=== PATIENT | male | born 1960 | race Caucasian/White ===

== ENCOUNTER 2019-09-28 15:16 | Emergency (ER) | payer OTHER, SELFPAY ==
--- NOTE | ~2019-09-28 | CT_ITS ---
EXAMINATION: CTA chest PE protocol DATE: 09/28/2019 17:19 INDICATION: Shortness of breath and having recently stopped anticoagulation for prior pulmonary embol ism. TECHNIQUE: Computed tomography (CT) pulmonary angiogram of the chest was performed with 100 mL Omnipa que-350 intravenous contrast. Additional 3D reconstructions utilizing coronal maximum intensity proje ction (MIP) were performed. Automated exposure control and iterative reconstruction technique were em ployed. The dose-length product was 1192.30 mGy-cm. COMPARISON: 08/02/2018 FINDINGS: Good contrast opacification of the pulmonary arteries. There is mild to moderate streak artifact from dense contrast in the in the veins between the right upper extremity and the right atrium including some reflux contrast in the azygos vein. There is also mild to moderate scattered respiratory motion artifact most prominent at the left lung base. Together this decreases sensitivity in many of the sma ller segmental and subsegmental pulmonary arteries. There is a new pulmonary arterial filling defect in the right upper lobar posterior segmental and subsegmental pulmonary arteries consistent with recu rrent pulmonary embolism. The prior pulmonary emboli appear to have resolved. Persistent volume loss the right hemithorax with elevation of right hemidiaphragm and compressive right basilar atelectasis. No pneumonia, pulmonary edema or pleural effusion. Heart size is normal. No leftward deviation of th e ventricular septum to suggest right heart strain. Thoracic aorta is normal in caliber with no disse ction. No pathologically enlarged thoracic lymphadenopathy. Liver, gallbladder, spleen, pancreas, olivia ateral adrenal glands and visualized portions of the kidneys and bowels are normal. Anterior fusion w ith interbody fusion device at C6-C7. Mild thoracic spondylosis with bridging osteophytes at multiple levels consistent with diffuse idiopathic skeletal hyperostosis (DISH). IMPRESSION: 1. New pulmonary embolism in the right upper lobe posterior segmental and subsegmental pulmonary myriam bertha. Dr. Martínez discussed these findings with Dr. Mcelroy at 5:50 PM. Reviewed, dictated and finalized at location A. ESSING TECHNICIAN IMPRESSION: 1. New pulmonary embolism in the right upper lobe posterior segmental and subse gmental pulmonary arteries. Dr. Martínez discussed these findings with Ulises is at 5:50 PM.
[2019-09-28 15:30] VITALS: BP 119/71; PULSE 68; RESP 18; TEMP 36.6; O2SAT 92
--- NOTE | 2019-09-28 16:03 | ECG_ITS ---
Measurements Intervals [place] Rate: 64 P: 30 ND: 169 QRS: 41 QRSD: 96 T: 16 QT: 409 QTc: 423 Interpretive Statements SINUS RHYTHM VOLTAGE CRITERIA FOR LVH BORDERLINE ECG Electronically Signed On 09-28-2019 16:20:25 SEISMOLOGY TECHNICAL OFFICER by Kyle Wilks D.O.
[2019-09-28 16:40] LABS: Hematocrit 46.2 % (40.0-54.0); Hemoglobin 15.4 g/dL (14.0-18.0); Mean Corpuscular HGB Conc 33.3 g/dL (32.0-36.0); Mean Corpuscular Hemoglobin 29.1 pg (27.0-31.0); Mean Corpuscular Volume 87.2 fL (78.0-102.0); Mean Platelet Volume 11.2 fl (8.7-11.0); Platelet Count Result 186 K/mm3 (150-420); Red Cell Distribution Width 13.4 % (11.6-14.4); White Blood Count 6.8 K/mm3 (4.8-10.8)
[2019-09-28 17:00] LABS: Alanine Aminotransferase 40 U/L (16-63); Albumin Level 3.8 g/dL (3.4-5.0); Alkaline Phosphatase 65 U/L (46-116); Anion Gap 10.1 mmol/L (7-16); Aspartate Amino Transferase 39 U/L (15-37); Bilirubin,Total 0.4 mg/dL (0.00-1.00); Blood Urea Nitrogen 19 mg/dL (7-18); Calcium 8.5 mg/dL (8.5-10.1); Carbon Dioxide 31 mmol/L (21-32); Chloride 102 mmol/L (98-108); Estimated CRCL calculation 69 ml/min; Estimated Glomerular Filt Rate 52; Glucose 109 mg/dL (70-99); Osmolality Calculated 293 mOsm/kg (285-295); Potassium 3.1 mmol/L (3.5-5.1); Sodium 140 mmol/L (136-145); Total Protein 7.1 g/dL (6.4-8.2); Troponin I < 0.02 ng/mL (0.00-0.056)
[2019-09-28 18:02] VITALS: BP 116/78; PULSE 65; RESP 18; O2SAT 92
--- NOTE | 2019-09-28 18:03 | ED.GENADULT ---
HPI - General Adult General Chief complaint: Dizziness Stated complaint: sweating,head pain,dizzy Source: patient Mode of arrival: ambulatory Limitations: no limitations History of Present Illness HPI narrative: This is a 58-year-old gentleman that presents to the emergency department with some some increased shortness of breath with an episode of diophoresis Started on Wednesday, and while he was sleeping at night that woke him up with a mild cough that is nonproductive with no chest pain, has a history of a pulmonary embolus occurred after he had neck surgery. Patient recently had his Eliquis stopped by his primary care physician. Currently no fever or chills, no nausea vomiting no chest pain no abdominal pain currently no diaphoresis and the patient is not complaining of shortness of breath currently Onset (ago): day(s) Location: chest Radiation: non-radiation Severity: mild Severity scale (1-10): 4 Pain Consistency: intermittent Relieving factors: none Exacerbating factors: none Associated symptoms: cough and diaphoresis Related Data Home Medications Medication Instructions Recorded Confirmed carvedilol 25 mg tablet 25 mg PO Q12H 07/27/19 09/28/19 hydrochlorothiazide 50 mg tablet 50 mg PO DAILY 07/27/19 09/28/19 hijltfax-ktazriio-rblnh acid 400 1 tablet PO DAILY 07/27/19 09/28/19 mcg-vit K 20 mcg-lycop 300 mcg tablet omeprazole magnesium 20 mg 20 mg PO DAILY 07/27/19 09/28/19 tablet,delayed release Allergies Allergy/AdvReac Type Severity Reaction Status Date / Time rabeprazole Allergy Mild rash Verified 07/31/19 09:05 Review of Systems Review of Systems: All systems reviewed & are unremarkable except as noted in HPI and below PMFSH Past Medical History Medical History Pulmonary embolism Family History Family History Father Asthma Family history of malignant neoplasm Patient's father is Mother Family history of malignant neoplasm Patient's mother is Social History Social History Smoking status: Never smoker Second hand tobacco smoke exposure: No Alcohol intake: never Exam Const: General: no acute distress and alert Orientation/consciousness: patient oriented x3 HENMT: Head: normal to inspection Eyes: Conjunctivae: conjunctivae normal Pupils: Equal, round and reactive pupils present Neck: Neck: normal visual inspection Chest: Chest palpation & inspection: normal inspection of the chest and abnormal inspection of the chest Resp: Effort & Inspection: normal respiratory effort Auscultation: clear to auscultation bilaterally Cardio: Rate: regular rate Rhythm: regular rhythm GI: GI Palp: Yes Soft to palpation : Testes: Testes normal Skin: General skin exam: normal color Rashes: no rashes Neuro: General: patient oriented x3, moves all extremities, no meningeal signs and no focal motor deficits Psych: Mental Status: mental status grossly normal Course Vital Signs Vital signs: Vital Signs Temperature 36.6 C 09/28/19 15:30 Pulse Rate 68 09/28/19 15:30 Respiratory Rate 18 09/28/19 15:30 Blood Pressure 119/71 09/28/19 15:30 Pulse Oximetry 92 09/28/19 15:30 Temperature 36.6 C 09/28/19 15:30 Pulse Rate 68 09/28/19 15:30 Respiratory Rate 18 09/28/19 15:30 Blood Pressure 119/71 09/28/19 15:30 Pulse Oximetry 92 09/28/19 15:30 Medical Decision Making Vital Signs Vital Signs: Vital Signs Temperature 36.6 C 09/28/19 15:30 Pulse Rate 68 09/28/19 15:30 Respiratory Rate 18 09/28/19 15:30 Blood Pressure 119/71 09/28/19 15:30 Pulse Oximetry 92 09/28/19 15:30 Temperature 36.6 C 09/28/19 15:30 Pulse Rate 68 09/28/19 15:30 Respiratory Rate 18 09/28/19 15:30 Blood Pressure 119/71 09/28/19 15:
[2019-09-28 18:13] LABS: Influenza Control Valid (Valid)
[2019-09-28] MEDS: OSELTAMIVIR PHOSPHATE 75 MG CAP PO (18:50)
[2019-09-28 18:52] VITALS: BP 107/64; PULSE 69; RESP 18; O2SAT 93
[2019-09-28] MEDS: APIXABAN 2.5 MG TABLET 10 MG PO (18:55)
== END 2019-09-28 19:05 | disposition home or self-care (01) ==
PROVIDERS: Emergency Provider Emergency Medicine; PCP Internal Medicine
DX: J11.1 Influenza due to unidentified influenza virus with other respiratory manifestations (principal); I26.93 Single subsegmental thrombotic pulmonary embolism without acute cor pulmonale
CPT/HCPCS: 36415; 71275; 80053; 84484; 85027; 87804; 93005; 99283; 99284; A9270; Q9965

== ENCOUNTER 2020-07-22 07:03 | Outpatient (CLI) | payer OTHER, SELFPAY ==
[2020-07-22 07:35] LABS: Alanine Aminotransferase 37 U/L (4-50); Alkaline Phosphatase 67 U/L (38-126); Anion Gap 5 mmol/L (8-16); Aspartate Amino Transferase 41 U/L (17-59); Bilirubin,Total 0.7 mg/dL (0.2-1.3); Blood Urea Nitrogen 14 mg/dL (9-20); Calcium 9.1 mg/dL (8.4-10.2); Carbon Dioxide 36 mmol/L (22-30); Chloride 100 mmol/L (98-107); Cholesterol 169 mg/dL (0-200); Estimated Glomerular Filt Rate > 60; Glucose 106 mg/dL (75-110); HDL Direct 46 mg/dL; Potassium 3.6 mmol/L (3.4-5.0); Sodium 141 mmol/L (137-145); Triglycerides 111 mg/dL (<150)
[2020-07-22 07:45] LABS: LDL Cholesterol Direct 96 mg/dL
[2020-07-22 08:31] LABS: Prostate Specific Antigen 2.5 ng/mL (< OR = 4.0)
[2020-07-22 08:36] LABS: Hematocrit 50.2 % (42.0-52.0); Mean Corpuscular HGB Conc 33.9 g/dl (32-36); Mean Corpuscular Hemoglobin 29.9 pg (26-34); Mean Corpuscular Volume 88.4 fl (80-100); Mean Platelet Volume 11.1 fl (7.4-10.4); Platelet Count Result 260 k/mm3 (150-375); Red Blood Count 5.68 M/mm3 (4.6-6.20); Red Cell Distribution Width 12.8 % (11.5-14.5); White Blood Count 7.7 K/mm3 (4.5-10.0)
[2020-07-22 09:04] LABS: Folic Acid 11.3 ng/mL (2.76->20)
== END 2020-07-22 07:04 | disposition home or self-care (01) ==
PROVIDERS: PCP Internal Medicine; Visit Provider Physician Assistant
DX: Z00.00 Encounter for general adult medical examination without abnormal findings (principal); Z12.5 Encounter for screening for malignant neoplasm of prostate
CPT/HCPCS: 36415; 80053; 80061; 82607; 82746; 84153; 84443; 85027

== ENCOUNTER 2020-07-31 09:46 | Outpatient (NON) | payer OTHER, SELFPAY ==
[2020-08-01 20:04] LABS: SARS-CoV-2 RNA PCR Negative
== END 2020-07-31 09:47 ==
LOC: ANHCOVIDDT 09:48
PROVIDERS: Visit Provider Internal Medicine
DX: Z20.828 Contact with and (suspected) exposure to other viral communicable diseases (principal); R43.2 Parageusia
CPT/HCPCS: 87635; C9803; U0003

== ENCOUNTER 2020-08-21 13:05 | Outpatient (CLI) | payer OTHER, SELFPAY ==
--- NOTE | ~2020-08-21 | XR_ITS ---
XR chest 2V DATE: 08/21/2020 13:51 INDICATION: Cough and shortness of breath for 7 days. TECHNIQUE: PA and lateral views COMPARISON: Numerous CT pulmonary scan 11/07/2018 2 view chest FINDINGS: Normal heart size. No hilar or mediastinal enlargement. There is discoid atelectasis or more likely scarring in the right mid and lower lung zones and chroni c mild elevation of the right leaf of the diaphragm. No pulmonary consolidation is noted. No pleural effusion. Diffuse idiopathic skeletal hyperostosis and scoliosis of the thoracic spine. IMPRESSION: Discoid atelectasis or more likely scarring in the right mid and lower lung zones and chr onic elevation of right leaf of diaphragm Reviewed, dictated and finalized at location A. E OPERATOR IMPRESSION: Discoid atelectasis or more likely scarring in the right mid and lo wer lung zones and chronic elevation of right leaf of diaphragm
[2020-08-22 17:56] LABS: SARS-CoV-2 RNA PCR Positive
== END 2020-08-21 13:06 | disposition home or self-care (01) ==
LOC: CHSLAB 13:12
PROVIDERS: PCP Internal Medicine; Visit Provider Physician Assistant
DX: U07.1 COVID-19 (principal)
CPT/HCPCS: 71046; 87635; C9803; U0003

== ENCOUNTER 2020-08-23 08:51 | Inpatient (IN) | payer OTHER, SELFPAY ==
[2020-08-23] VITALS (10 sets, daily range): BP systolic 111–135; BP diastolic 80–91; PULSE 60–78; RESP 18–23; TEMP 36.3–36.8; O2SAT 90–97
--- NOTE | ~2020-08-23 | XR_ITS ---
EXAMINATION: XR chest 1V portable DATE: 08/23/2020 09:49 INDICATION: Shortness of breath and weakness TECHNIQUE: frontal view of the chest was obtained. COMPARISON: Chest radiograph dated 08/21/[address] dated 09/28/2019 FINDINGS: Chronic elevation of the right hemidiaphragm with no significant interval change in oblique linear op acities consistent with discoid atelectasis in the right mid and lower lung zones. Additional mild di scoid atelectasis at the left lung base extending to the costophrenic angle. No new airspace opacitie s, pulmonary edema, pleural effusion or pneumothorax. The cardiomediastinal silhouette is normal. The re are bridging osteophytes at multiple levels in the spine, consistent with diffuse idiopathic skele elmo hyperostosis (DISH). IMPRESSION: 1. No significant interval change in linear opacities consistent with discoid atelectasis/scarring at the left lung base and in the right mid and lower lung zone, the latter with associated elevation of right hemidiaphragm. Reviewed, dictated and finalized at location A. SWARE DEFECT REPAIRER IMPRESSION: 1. No significant interval change in linear opacities consistent with discoid a telectasis/scarring at the left lung base and in the right mid and lower lung z one, the latter with associated elevation of right hemidiaphragm.
--- NOTE | 2020-08-23 09:00 | ED.SOB ---
HPI - SOB/Dyspnea General Chief Complaint: Shortness of Breath/Dyspnea Stated Complaint: ?covid, SOB Time Seen by Provider: 08/23/20 09:13 Source: patient Mode of arrival: wheelchair Limitations: no limitations History of Present Illness HPI Narrative: Patient is a 59-year-old male with a history of hypertension, PE who presents for evaluation of shortness of breath. Patient was seen at outside facility for similar symptoms, swabbed for Covid but does not know the results of this. He has had positive Covid contacts. He reports dyspnea with exertion and at rest. He stated he became symptomatic the after his son tested positive. Patient reports he can still smell and taste but has no appetite and has been nauseated, thus has had decreased oral intake. He denies any current chest pain. He reports myalgias. No significant abdominal pain or flank pain. No rashes. Related Data Home Medications Medication Instructions Recorded Confirmed omeprazole magnesium 20 mg 20 mg PO DAILY 07/27/19 08/17/20 tablet,delayed release Allergies Allergy/AdvReac Type Severity Reaction Status Date / Time rabeprazole Allergy Mild rash Verified 08/23/20 09:08 Review of Systems Review of Systems: Narrative: CONSTITUTIONAL: Reports intermittent fever EYES: Denies visual changes, redness, or discharge. ENT: Reports mild rhinorrhea CARDIOVASCULAR: Denies chest pain, palpitations, or edema. RESPIRATORY: Reports dry cough and shortness of breath GASTROINTESTINAL: Denies abdominal pain, reports nausea, intermittent vomiting GENITOURINARY: Denies dysuria or hematuria. SKIN: Denies rash or itching. MUSCULOSKELETAL: Denies back pain, joint pain, reports myalgias NEUROLOGIC: Denies headache, numbness,reports feeling diffusely weak. [facility] Past Medical History Medical History (Updated 08/23/20 @ 09:38 by Keila Beebe MD) Cough FERRER (dyspnea on exertion) History of deep venous thrombosis or pulmonary embolus Loss of taste Pulmonary embolism Family History Family History Father Asthma Family history of malignant neoplasm Patient's father is Mother Family history of malignant neoplasm Patient's mother is Social History Social History Smoking status: Never smoker Second hand tobacco smoke exposure: No Alcohol intake: never Gender identity (if verbalized by the patient): Male Exam Narrative: Exam Narrative: GENERAL: Awake, alert, conversant HEAD: Normocephalic, atraumatic. EYES: PERRLA and EOMI. ENT: Nares clear, no rhinorrhea or epistaxis. Mucous membranes moist. NECK: Supple. CHEST: No respiratory distress, breathing even and non labored, hypoxic on room air, desaturates to 88% with movement HEART: Regular rate, sinus rhythm ABDOMEN:Non distended, non tender EXTREMITIES: Normal range of motion. No edema. SKIN: Warm, dry, no rash. NEURO:No focal deficits. Alert and oriented x3 Course Vital Signs Vital signs: Vital Signs Pulse Rate 64 08/23/20 09:05 Temperature 36.3 C L 08/23/20 09:06 Pulse Rate 63 08/23/20 09:11 Respiratory Rate 18 08/23/20 09:11 Blood Pressure 129/83 08/23/20 09:06 Pulse Oximetry 95 08/23/20 09:11 MDM - SOB/Dyspnea MDM Narrative Medical decision making narrative: Patient presented for evaluation of cough, myalgias, decreased oral intake over the past 10 days. Patient first day of symptoms was August 13 after he saw his primary care physician. Patient with positive contacts in the house including son and . After chart review, swab at outside facility was positive although patient had not been communicated these results until today. Chest x-ray shows bilateral infiltrates. With movement, patient desaturates to 88%, thus does qualify for IV Decadron and was given that in the ER. Given component of dehydratio
--- NOTE | 2020-08-23 09:05 | ECG_ITS ---
Measurements Intervals [place] Rate: 64 P: 21 AR: 146 QRS: 52 QRSD: 93 T: 19 QT: 429 QTc: 443 Interpretive Statements SINUS RHYTHM BORDERLINE ST-T WAVE ABNORMALITY- ANT/INF LEADS BASELINE WANDER- I, II, AVR, AVL, AVF, V1-V6 BORDERLINE ECG Electronically Signed On 08-23-2020 15:14:14 FIRESTOPPER TECHNICIAN by Kyle Wilks D.O.
[2020-08-23 09:13] LABS: Basophils Percent Auto 0.2 % (0.2-1.2); Hematocrit 48.1 % (42.0-52.0); Hemoglobin 16.7 g/dL (14.0-18.0); Immature Granulocyte Absolute 0.02 K/mm3 (0.00-0.031); Immature Granulocyte Percent A 0.3 % (0-0.5); Lymphocytes Absolute Auto 3.27 K/mm3 (0.9-3.2); Lymphocytes Percent Auto 51.6 % (18.3-44.2); Mean Corpuscular HGB Conc 34.7 g/dl (32-36); Mean Corpuscular Volume 83.7 fl (80-100); Mean Platelet Volume 10.6 fl (7.4-10.4); Monocytes Absolute Auto 0.7 K/mm3 (0.1-0.6); Monocytes Percent Auto 10.9 % (2.6-8.5); Neutrophils Absolute Auto 2.4 K/mm3 (1.3-6.7); Platelet Count Result 191 k/mm3 (150-375); Red Blood Count 5.75 M/mm3 (4.6-6.20); Red Cell Distribution Width 12.7 % (11.5-14.5); White Blood Count 6.3 K/mm3 (4.5-10.0)
[2020-08-23 09:26] LABS: Anion Gap 5 mmol/L (8-16); Blood Urea Nitrogen 17 mg/dL (9-20); Calcium 8.9 mg/dL (8.4-10.2); Carbon Dioxide 38 mmol/L (22-30); Chloride 88 mmol/L (98-107); Estimated CRCL calculation 91 ml/min; Estimated Glomerular Filt Rate > 60; Glucose 112 mg/dL (75-110); Sodium 131 mmol/L (137-145)
[2020-08-23 09:35] LABS: Alanine Aminotransferase 40 U/L (4-50); Alkaline Phosphatase 49 U/L (38-126); Aspartate Amino Transferase 65 U/L (17-59); Bilirubin,Total 0.7 mg/dL (0.2-1.3)
[2020-08-23] MEDS: SODIUM CHLORIDE 0.9% IV 1,000 ML 999 ML IV CONT (09:51)
[2020-08-23] MEDS: ONDANSETRON INJ 4 MG/2 ML VIAL IV PUSH (09:51)
--- NOTE | 2020-08-23 12:37 | ADMGEN ---
This patient, Silviano Melendez, was admitted to [address] [facility] Surg Room 300-01. Patient/family oriented to hospital policies and general routines including ID bracelet, bed and alarms, visiting hours, pain management, procedures, bathroom and other care routines, personal items, smoking policy, room service/diet, and visiting hours. Information on how to activate the Rapid Response Team has been discussed. Patient/Family are encouraged to report perceived risks to care and to ask questions if they do not understand what they are told or what they should do.
--- NOTE | 2020-08-23 13:37 | PM.IMHP ---
H&P: HPI History of Present Illness Date/Time: 08/23/20 13:37 Chief Complaint: Dyspnea on exertion Narrative: Silviano Melendez is a 59 year old male of hypertension and pulmonary embolism. He has been on Eliquis. The patient takes his medication routinely. He is also on hydrochlorothiazide. The patient stated that he started to get COVID symptoms around the 13 of August when his tested positive on the 13 of August. The patient has had loss of his appetite has been nauseated. He said that he has not lost his sense of taste but nothing taste good to him. He has had no chest pain but has been short of breath. He has been progressively getting worse. This is his 10th day of symptoms. He does not typically wear oxygen at home. He is currently on 3 L per nasal cannula. The patient tested positive for COVID on 08/21/2020 he had a negative COVID on 07/31/2020. His and son also have tested positive for COVID an [employer] well. The patient had a pulse ox reading of 92 to 93-94% and it looks like in the past he has had readings that low as well. Patient was placed on oxygen at 2 L per nasal cannula. That is been loose and nonproductive. He was given a 1 time dose of Decadron and Zofran in the emergency room. He was given potassium IV piggyback for potassium 3.0. He is also given IV fluids. The patient stated he is feeling much better since he had received the IV fluids and the oxygen. Change in the linear opacities consistent with discoid atelectasis-scarring at the left lung bases and in the right mid lower lung zones the latter with associated elevation of right hemo diaphragm. Status on the date of service of 08/23/2020. Review of Systems Review of Systems: All systems reviewed & are unremarkable except as noted in HPI and below Constitutional: Constitutional: Reports as per HPI and Reports no additional constitutional complaints Eyes: Eyes: Reports as per HPI and Reports no additional eye complaints ENT: Reports system reviewed and no additional complaints, except as documented and Reports Normal hearing present Cardiovascular: Cardiovascular: Reports no additional cardiovascular complaints Respiratory: Respiratory: Reports no additional respiratory complaints and Reports no additional respiratory complaints Gastrointestinal: Gastrointestinal: Reports as per HPI and Reports no additional gastrointestinal complaints Musculoskeletal: Musculoskeletal: Reports no additional musculoskeletal complaints Integumentary/Breasts: Skin/Breast: Reports system reviewed and no additional complaints, except as docu and Reports as per HPI Neurologic: Reports system reviewed and no additional complaints, except as documented, Reports as per HPI and Reports Normal hearing present Psychiatric: Psychiatric: Reports no additional psychiatric complaints and Reports as per HPI Endocrine: Endocrine: Reports no additional endocrine complaints Hematologic/Lymphatic: Hematologic/Lymphatic: Reports no additional hematologic/lymphatic complaints Allergic/Immunologic: Allergic/Immunologic: Reports no additional allergic/immunologic complaints [facility] Past Medical History Medical History (Updated 08/23/20 @ 14:11 by Brenda Landis NP) Chronic GERD Cough FERRER (dyspnea on exertion) History of deep venous thrombosis or pulmonary embolus Hypertension Loss of taste Neuropathy Left foot Pulmonary embolism Surgical History Surgical History (Updated 08/23/20 @ 13:49 by Brenda Landis NP) History of carotid angioplasty Status post left foot surgery X2 Family History Family History (Updated 08/23/20 @ 13:51 by Brenda Landis NP) Father Asthma Patient's father is Emphysema lung Mother Patient's mother is Sepsis Social History Social History (Updated 08/23/20 @ 13:52 by Brenda Landis NP) Social History: Patient lives with his who works in the medical field. She is a dura
[2020-08-23 14:24] LABS: Alanine Aminotransferase 37 U/L (4-50); Estimated CRCL calculation 101 ml/min; Estimated Glomerular Filt Rate > 60
[2020-08-23] MEDS: SODIUM CHLORIDE 0.9% IV 1,000 ML 50 ML IV CONT (15:35)
[2020-08-23] MEDS: REMDESIVIR 200 MG/NS 250 ML 200 MG/250 ML BAG 250 MG IVPB (15:36)
[2020-08-23] MEDS: GABAPENTIN 300 MG CAPSULE 600 MG PO ×2 (15:36→17:50)
[2020-08-23] MEDS: APIXABAN 5 MG TABLET PO (17:25)
[2020-08-23] MEDS: carvediloL 25 MG TABLET PO (21:42)
[2020-08-23 22:30] LABS: Anion Gap 8 mmol/L (8-16); Blood Urea Nitrogen 14 mg/dL (9-20); Calcium 8.7 mg/dL (8.4-10.2); Carbon Dioxide 34 mmol/L (22-30); Chloride 90 mmol/L (98-107); Estimated CRCL calculation 112 ml/min; Estimated Glomerular Filt Rate > 60; Glucose 174 mg/dL (75-110); Potassium 3.1 mmol/L (3.4-5.0); Sodium 132 mmol/L (137-145)
[2020-08-23] MEDS: ALBUTEROL SULFATE (*SP) AEROSOL 1 PUFF 2 PUFF INHALATION (23:11)
[2020-08-24] VITALS (10 sets, daily range): BP systolic 109–146; BP diastolic 68–88; PULSE 49–73; RESP 16–18; TEMP 36.2–37; O2SAT 89–95
[2020-08-24] MEDS: SODIUM CHLORIDE 0.9% IV 1,000 ML 50 ML IV CONT (01:00)
[2020-08-24 06:33] LABS: Hematocrit 48.3 % (42.0-52.0); Hemoglobin 16.5 g/dL (14.0-18.0); Immature Granulocyte Absolute 0.01 K/mm3 (0.00-0.031); Immature Granulocyte Percent A 0.3 % (0-0.5); Lymphocytes Absolute Auto 1.86 K/mm3 (0.9-3.2); Mean Corpuscular HGB Conc 34.2 g/dl (32-36); Mean Corpuscular Hemoglobin 28.6 pg (26-34); Mean Corpuscular Volume 83.7 fl (80-100); Mean Platelet Volume 10.8 fl (7.4-10.4); Monocytes Absolute Auto 0.3 K/mm3 (0.1-0.6); Monocytes Percent Auto 9.1 % (2.6-8.5); Neutrophils Absolute Auto 1.3 K/mm3 (1.3-6.7); Neutrophils Percent Auto 37.6 % (45.5-73.1); Platelet Count Result 213 k/mm3 (150-375); Red Blood Count 5.77 M/mm3 (4.6-6.20); Red Cell Distribution Width 12.4 % (11.5-14.5); White Blood Count 3.5 K/mm3 (4.5-10.0)
[2020-08-24 06:50] LABS: Alanine Aminotransferase 37 U/L (4-50); Albumin Level 3.8 g/dL (3.5-5.1); Alkaline Phosphatase 50 U/L (38-126); Anion Gap 6 mmol/L (8-16); Aspartate Amino Transferase 59 U/L (17-59); Bilirubin,Total 0.7 mg/dL (0.2-1.3); Blood Urea Nitrogen 14 mg/dL (9-20); Calcium 8.6 mg/dL (8.4-10.2); Carbon Dioxide 36 mmol/L (22-30); Chloride 93 mmol/L (98-107); Estimated CRCL calculation 127 ml/min; Estimated Glomerular Filt Rate > 60; Glucose 132 mg/dL (75-110); Lactate Dehydrogenase 537 U/L (313-618); Potassium 2.9 mmol/L (3.4-5.0); Sodium 135 mmol/L (137-145)
[2020-08-24] MEDS: PANTOPRAZOLE 40 MG TABLET PO (08:25)
[2020-08-24] MEDS: DEXAMETHASONE SOD PHOS INJ 4 MG/ML VIAL 6 MG IV PUSH (08:25)
[2020-08-24] MEDS: carvediloL 25 MG TABLET PO ×2 (08:25→20:57)
[2020-08-24] MEDS: APIXABAN 5 MG TABLET PO ×2 (08:25→17:53)
[2020-08-24] MEDS: ALBUTEROL SULFATE (*SP) AEROSOL 1 PUFF 2 PUFF INHALATION ×2 (08:25→17:53)
[2020-08-24] MEDS: GABAPENTIN 300 MG CAPSULE 600 MG PO ×3 (08:25→17:53)
[2020-08-24] MEDS: POTASSIUM CHLORIDE 20 MEQ TABLET 40 MEQ PO (09:31)
[2020-08-24] MEDS: REMDESIVIR 100 MG/NS 250 ML 100 MG/250 ML BAG 250 MG IVPB (10:41)
[2020-08-24] MEDS: guaiFENesin/DEXTROMETHORPHAN 10 ML UDC PO ×2 (12:40→20:56)
--- NOTE | 2020-08-24 13:28 | PM.IMPN ---
Progress Note: A&P Assessment and Plan (1) COVID-19: Code(s): U07.1 - COVID-19 Status: Acute Assessment and Plan: Patient presents with worsening shortness of breath; CXR shows discoid atelectasis/scarring at the left lung base, and right mid and lower lung zones with right hemidiaphragm; COVID positive 08/21/20. Continue dexamethasone (day 2); remdesivir (day 2). Continue supplemental O2 and wean as tolerated to keep O2 saturations > 90%. Continue supportive care with Tylenol for fevers, albuterol MDI, Robitussin, incentive spirometer, supplementation of Zinc, vitamins C and D. DVT prophylaxis with his home Eliquis. (2) Acute respiratory failure with hypoxia: Code(s): J96.01 - Acute respiratory failure with hypoxia Status: Acute Assessment and Plan: Secondary to COVID-19. See above. On 2 L at time of my assessment, noted to have O2 saturations less than 90% on room air during my exam. Wean O2 as tolerated. (3) Hypokalemia: Code(s): E87.6 - Hypokalemia Status: Acute Assessment and Plan: Potassium 2.9 this morning, replaced orally and parenterally. Magnesium 2.0 yesterday. Continue to monitor potassium and magnesium, replace as needed. (4) Hypertension: Qualifiers: Hypertension type: essential hypertension Qualified Code(s): I10 - Essential (primary) hypertension Code(s): I10 - Essential (primary) hypertension Status: Acute Assessment and Plan: BP stable maintained on his home carvedilol. HCTZ held secondary to hypokalemia. Monitor BP and adjust treatment as needed. (5) Pulmonary embolism: Qualifiers: Pulmonary embolism type: single subsegmental (without acute cor pulmonale) Qualified Code(s): I26.93 - Single subsegmental pulmonary embolism without acute cor pulmonale Code(s): I26.99 - Other pulmonary embolism without acute cor pulmonale Status: Chronic Assessment and Plan: History of pulmonary embolism on 2 separate occasions now remains on long-term anticoagulation with Eliquis. Last pulmonary embolism documented on September 2019. (6) Chronic GERD: Code(s): K21.9 - Gastro-esophageal reflux disease without esophagitis Status: Chronic Assessment and Plan: Stable, no acute issues. Continue PPI. (7) Neuropathy: Code(s): G62.9 - Polyneuropathy, unspecified Status: Chronic Assessment and Plan: Stable. Continue gabapentin. Subjective Date/time seen: 08/24/20 1230 Interval history: Mr. Melendez is a pleasant 59-year-old male admitted for acute respiratory failure secondary to COVID-19. He reports feeling improved today in fact he would like to go home. Feels his shortness of breath is improved. Denies chest pain. Tolerating oral intake without nausea or vomiting. Describes he has not eaten much in the last 1 week but now appetite has improved. Review of Systems Review of Systems: All systems reviewed & are unremarkable except as noted in HPI and below Exam Narrative: Exam Narrative: General: Male resting comfortably sitting up in bedside chair in no acute distress. HEENT: Normocephalic, EOMI, oral mucosa moist. Cardiovascular: Rate and rhythm are regular. Respiratory: Diminished breath sounds KRIS. Respirations even and non-labored. O2 saturations 88-93% on room air, placed on 2 L at time of my encounter. Abdomen: Soft, non-tender, non-distended, bowel sounds present. Extremities: Peripheral pulses intact. No edema. Neuro: No focal neurological deficits. Speech is clear. Objective Data Vital Signs Vital Signs: Last Vital Signs T
[2020-08-24 16:54] LABS: Potassium 3.4 mmol/L (3.4-5.0)
[2020-08-24] MEDS: POTASSIUM CHLORIDE 20 MEQ TABLET 60 MEQ PO (17:51)
[2020-08-24] MEDS: ZINC SULFATE 220 MG CAPSULE PO (17:51)
[2020-08-24] MEDS: ASCORBIC ACID 500 MG TABLET PO (17:52)
[2020-08-24] MEDS: CHOLECALCIFEROL 1,000 UNITS TABLET 1000 UNITS PO (17:52)
[2020-08-25] VITALS: BP 135/85; PULSE 59; RESP 16; TEMP 36.7; O2SAT 92
[2020-08-25 04:00] VITALS: BP 132/78; PULSE 60; RESP 18; TEMP 36.2; O2SAT 92
[2020-08-25 06:20] LABS: Basophils Percent Auto 0.2 % (0.2-1.2); Hematocrit 46.3 % (42.0-52.0); Hemoglobin 15.9 g/dL (14.0-18.0); Immature Granulocyte Absolute 0.02 K/mm3 (0.00-0.031); Immature Granulocyte Percent A 0.3 % (0-0.5); Lymphocytes Absolute Auto 2.04 K/mm3 (0.9-3.2); Lymphocytes Percent Auto 31.3 % (18.3-44.2); Mean Corpuscular HGB Conc 34.3 g/dl (32-36); Mean Corpuscular Hemoglobin 28.9 pg (26-34); Mean Platelet Volume 11.3 fl (7.4-10.4); Monocytes Absolute Auto 0.6 K/mm3 (0.1-0.6); Monocytes Percent Auto 9.4 % (2.6-8.5); Neutrophils Absolute Auto 3.8 K/mm3 (1.3-6.7); Neutrophils Percent Auto 58.8 % (45.5-73.1); Platelet Count Result 256 k/mm3 (150-375); Red Blood Count 5.51 M/mm3 (4.6-6.20); Red Cell Distribution Width 12.6 % (11.5-14.5); White Blood Count 6.5 K/mm3 (4.5-10.0)
[2020-08-25 06:40] LABS: Alanine Aminotransferase 42 U/L (4-50); Albumin Level 3.5 g/dL (3.5-5.1); Alkaline Phosphatase 55 U/L (38-126); Anion Gap 5 mmol/L (8-16); Aspartate Amino Transferase 63 U/L (17-59); Bilirubin,Total 0.5 mg/dL (0.2-1.3); Blood Urea Nitrogen 14 mg/dL (9-20); CRP 1.3 mg/dL (<1.0); Calcium 8.6 mg/dL (8.4-10.2); Carbon Dioxide 33 mmol/L (22-30); Chloride 99 mmol/L (98-107); Estimated CRCL calculation 127 ml/min; Estimated Glomerular Filt Rate > 60; Glucose 121 mg/dL (75-110); Magnesium 2.1 mg/dL (1.6-2.3); Potassium 3.4 mmol/L (3.4-5.0); Sodium 137 mmol/L (137-145)
[2020-08-25 08:00] VITALS: BP 131/84; PULSE 60; RESP 16; TEMP 36.2; O2SAT 95
[2020-08-25] MEDS: POTASSIUM CHLORIDE 20 MEQ TABLET 60 MEQ PO (08:42)
[2020-08-25] MEDS: DEXAMETHASONE SOD PHOS INJ 4 MG/ML VIAL 6 MG IV PUSH (08:43)
[2020-08-25] MEDS: APIXABAN 5 MG TABLET PO (08:43)
[2020-08-25] MEDS: ZINC SULFATE 220 MG CAPSULE PO (08:43)
[2020-08-25] MEDS: PANTOPRAZOLE 40 MG TABLET PO (08:43)
[2020-08-25] MEDS: GABAPENTIN 300 MG CAPSULE 600 MG PO (08:43)
[2020-08-25] MEDS: CHOLECALCIFEROL 1,000 UNITS TABLET 1000 UNITS PO (08:43)
[2020-08-25 08:44] VITALS: PULSE 64
[2020-08-25] MEDS: carvediloL 25 MG TABLET PO (08:44)
[2020-08-25] MEDS: ASCORBIC ACID 500 MG TABLET PO (08:44)
[2020-08-25 09:50] VITALS: PULSE 68; O2SAT 91
[2020-08-25 09:55] VITALS: PULSE 68; O2SAT 91
--- NOTE | 2020-08-25 10:23 | PCRCNOTE ---
home evaluation complete patient doesnt not require oxygen at rest or with activity
--- NOTE | 2020-08-25 10:25 | HOMEO2EVAL ---
Home Oxygen Evaluation RC: Home Oxygen (O2) Evaluation Start: 08/25/20 07:58 Freq: ONCE Status: Active Protocol: RPE Activity Type Activity Date Activity User E-Sign Co-Sign Detail Recorded Client Recorded Date Recorded By Document 08/25/20 09:50 LONG [email or web address] 08/25/20 10:21 MDE Document 08/25/20 09:55 LONG [email or web address] 08/25/20 10:22 MDE 08/25/20 08/25/20 09:50 09:55 Home O2 Evaluation Test Phase Resting Exercise Oxygen Delivery Room Air Room Air Fraction of Inspired Oxygen (%) 21 21 Pulse Oximetry (90-100 %) 91 91 Pulse Rate (60-100 beats/min) 68 68 Activity Tolerance Good Good Ambulation Distance (feet) 80 Treatment Charges O2 Evaluation
[2020-08-25] MEDS: REMDESIVIR 100 MG/NS 250 ML 100 MG/250 ML BAG 250 MG IVPB (10:36)
--- NOTE | 2020-08-25 12:21 | PM.DS ---
DS: Admitting Diagnosis Admitting Diagnosis Admitting Diagnosis: Acute respiratory failure with hypoxia, COVID DS: Discharge Diagnosis Discharge Diagnosis (1) COVID-19: Code(s): U07.1 - COVID-19 Status: Acute Assessment and Plan: Date of Admission 08/23/20 Date of Discharge 08/25/19 Mr. Melendez is a 59yo M with hypertension on long-term anticoagulation with Eliquis due to pulmonary embolism on two separate occasions, who presented to [facility] for evaluation of worsening shortness of breath. Chest XR demonstrated atelectasis/scarring at the left base and right mid/lower lung. COVID positive 08/21/20. He was treated with supplemental oxygen, 3 days of dexamethasone and 3 days of remdesivir. He was feeling clinically improved and oxygen was able to be weaned, he was maintaining adequate oxygen saturations on room air with activity and at rest on day of discharge. He was hemodynamically stable for discharge on 08/25/20 with instructions to follow up with PCP. He was noted to have low potassium which was replaced both orally and parenterally. It was felt dehydration from poor oral intake plus HCTZ were contributing factors. For this reason, his hydrochlorothiazide was held during his stay. He was instructed to continue holding HCTZ until he follows up with PCP. Patient presents with worsening shortness of breath; CXR shows discoid atelectasis/scarring at the left lung base, and right mid and lower lung zones with right hemidiaphragm; COVID positive 08/21/20. Treated with dexamethasone (day 3); remdesivir (day 3). Off supplemental O2 day of discharge. Treated with supportive care with Tylenol for fevers, albuterol MDI, Robitussin, incentive spirometer, supplementation of Zinc, vitamins C and D. DVT prophylaxis with his home Eliquis. (2) Acute respiratory failure with hypoxia: Code(s): J96.01 - Acute respiratory failure with hypoxia Status: Resolved Assessment and Plan: Secondary to COVID-19. See above. (3) Hypokalemia: Code(s): E87.6 - Hypokalemia Status: Acute Assessment and Plan: Potassium low and replaced. Repeat labs outpatient and follow up with PCP. Hold HCTZ. (4) Hypertension: Qualifiers: Hypertension type: essential hypertension Qualified Code(s): I10 - Essential (primary) hypertension Code(s): I10 - Essential (primary) hypertension Status: Acute Assessment and Plan: BP stable maintained on his home carvedilol. HCTZ held secondary to hypokalemia. (5) Pulmonary embolism: Qualifiers: Pulmonary embolism type: single subsegmental (without acute cor pulmonale) Qualified Code(s): I26.93 - Single subsegmental pulmonary embolism without acute cor pulmonale Code(s): I26.99 - Other pulmonary embolism without acute cor pulmonale Status: Chronic Assessment and Plan: History of pulmonary embolism on 2 separate occasions now remains on long-term anticoagulation with Eliquis. Last pulmonary embolism documented on September 2019. (6) Chronic GERD: Code(s): K21.9 - Gastro-esophageal reflux disease without esophagitis Status: Chronic Assessment and Plan: Stable, no acute issues. Continue PPI. (7) Neuropathy: Code(s): G62.9 - Polyneuropathy, unspecified Status: Chronic Assessment and Plan: Stable. Continue gabapentin. DS: Summary Hospital Course Hospital Course: See above. Time Spent with Patient Time attestation: Total time spent providing and/or coordinating discharge services: 40 minutes Exam Narrative: E
== END 2020-08-25 13:50 | disposition home or self-care (01) | DRG 177 ==
LOC: ANHED 10:31 → ANH3MEDSUR 11:25
PROVIDERS: Nurse Practitioner; Physician Assistant; Admitting Provider Family Medicine; Emergency Provider Emergency Medicine; PCP Internal Medicine; Visit Provider Family Medicine
DX: U07.1 COVID-19 (principal); J96.01 Acute respiratory failure with hypoxia; J98.11 Atelectasis; E87.6 Hypokalemia; I10 Essential (primary) hypertension; Z86.711 Personal history of pulmonary embolism; Z79.01 Long term (current) use of anticoagulants; K21.9 Gastro-esophageal reflux disease without esophagitis; G62.9 Polyneuropathy, unspecified; Z86.718 Personal history of other venous thrombosis and embolism
CPT/HCPCS: 36415; 71045; 80048; 80053; 82565; 82728; 83615; 83735; 84132; 84460; 85025; 86140; 93005; 94618; 94640; 96361; 96365; 96366; 96368; 96374; 96375; 99285; A9270; G0378; J0131; J1100; J2405; J3480; J7030

== ENCOUNTER 2020-08-30 11:06 | Outpatient (CLI) | payer OTHER, SELFPAY ==
[2020-08-30 12:32] LABS: Anion Gap 6 mmol/L (8-16); Blood Urea Nitrogen 9 mg/dL (7-18); Calcium 8.8 mg/dL (8.5-10.1); Carbon Dioxide 31 mmol/L (21-32); Chloride 104 mmol/L (98-108); Estimated Glomerular Filt Rate > 60; Glucose 96 mg/dL (70-99); Osmolality Calculated 290 mOsm/kg (285-295); Sodium 141 mmol/L (136-145)
== END 2020-08-30 11:07 | disposition home or self-care (01) ==
LOC: CHSLAB 11:07
PROVIDERS: PCP Internal Medicine; Visit Provider Physician Assistant
DX: E87.6 Hypokalemia (principal)
CPT/HCPCS: 36415; 80048

== ENCOUNTER 2021-04-11 14:53 | Outpatient (CLI) | payer OTHER, SELFPAY ==
[2021-04-11 18:19] LABS: SARS-CoV-2 IgG Reactive (NonReactive)
== END 2021-04-11 14:54 | disposition home or self-care (01) ==
LOC: ANHLAB 14:56
PROVIDERS: PCP Internal Medicine; Visit Provider Internal Medicine
DX: U07.1 COVID-19 (principal)
CPT/HCPCS: 36415; 86769

== ENCOUNTER 2021-08-21 07:15 | Outpatient (CLI) | payer OTHER, SELFPAY ==
[2021-08-21 07:28] LABS: Basophils Absolute Auto 0.05 K/mm3 (0.00-0.10); Basophils Percent Auto 0.5 % (0.0-1.0); Eosinophils Absolute Auto 0.11 K/mm3 (0.02-0.50); Eosinophils Percent Auto 1.2 % (1.0-6.0); Hematocrit 52.4 % (40.0-54.0); Hemoglobin 17.3 g/dL (14.0-18.0); Immature Granulocyte Absolute 0.01 K/mm3 (0.00-0.00); Immature Granulocyte Percent A 0.1 % (0.0-0.0); Lymphocytes Absolute Auto 4.38 K/mm3 (1.10-4.50); Lymphocytes Percent Auto 47.5 % (18.0-42.0); Mean Corpuscular Hemoglobin 29.3 pg (27.0-31.0); Mean Corpuscular Volume 88.8 fL (78.0-102.0); Monocytes Absolute Auto 0.81 K/mm3 (0.10-0.90); Monocytes Percent Auto 8.8 % (2.0-11.0); Neutrophils Absolute Auto 3.9 K/mm3 (1.7-7.2); Neutrophils Percent Auto 41.9 % (50.0-70.0); Platelet Count Result 270 K/mm3 (150-420); Red Cell Distribution Width 13.4 % (11.6-14.4); White Blood Count 9.2 K/mm3 (4.8-10.8)
[2021-08-21 08:33] LABS: Alanine Aminotransferase 38 U/L (16-63); Albumin Level 4.1 g/dL (3.4-5.0); Alkaline Phosphatase 84 U/L (46-116); Anion Gap 6 mmol/L (8-16); Aspartate Amino Transferase 43 U/L (15-37); Bilirubin,Total 0.6 mg/dL (0.00-1.00); Blood Urea Nitrogen 16 mg/dL (7-18); Calcium 9.4 mg/dL (8.5-10.1); Carbon Dioxide 33 mmol/L (21-32); Chloride 103 mmol/L (98-108); Cholesterol 187 mg/dL (0-200); Estimated Glomerular Filt Rate > 60; Glucose 103 mg/dL (70-99); HDL Direct 53 mg/dL (40-60); LDL Cholesterol Calculated 111 mg/dL (<130); Osmolality Calculated 295 mOsm/kg (285-295); Potassium 4.1 mmol/L (3.5-5.1); Prostate Specific Antigen 3.3 ng/mL (< OR = 4.0); Sodium 142 mmol/L (136-145); Thyroid Stimulating Hormone 2.55 uIU/mL (0.36-3.74); Total Protein 7.5 g/dL (6.4-8.2); Triglycerides 116 mg/dL (0-150); Vitamin B12 527 pg/mL (193-986)
[2021-08-21 08:36] LABS: Folic Acid > 20.0 ng/mL (8.6->20)
== END 2021-08-21 07:16 | disposition home or self-care (01) ==
LOC: CHSLAB 07:18
PROVIDERS: PCP Internal Medicine; Visit Provider Internal Medicine
DX: R73.9 Hyperglycemia, unspecified (principal); R53.83 Other fatigue; E78.00 Pure hypercholesterolemia, unspecified; Z12.5 Encounter for screening for malignant neoplasm of prostate
CPT/HCPCS: 36415; 80053; 80061; 82607; 82746; 84153; 84443; 85025; G0103

== ENCOUNTER 2025-03-02 15:57 | Emergency (ER) | payer OTHER, SELFPAY ==
[2025-03-02 15:57] VITALS: BP 128/75; PULSE 77; RESP 14; TEMP 37.2; O2SAT 93
--- NOTE | 2025-03-02 16:01 | ED.LOWEXIN ---
HPI - Extremity Injury (Lower) General Chief Complaint: Extremity Problem,Nontraumatic Stated Complaint: right leg pain and swelling Time Seen by Provider: 03/02/25 16:00 Source: patient Mode of arrival: ambulatory Limitations: no limitations History of Present Illness HPI Narrative: Patient is a 64-year-old male with right lower extremity swelling and pain for the past 3 days. He has been driving back and forth to [place] for work. He is on Xarelto for PE in the past year. In fact he took an extra Xarelto today. No respiratory complaints today. No shortness of breath or chest pain. No injuries. MD complaint: other ( No injury; right lower extremity swelling and pain for the past 3 days) Onset (ago): day(s) ( 3) Type of Injury: other ( no injury) Place: work ( driving many miles an hours recently) Severity: moderate Severity scale (1-10): 4 Relieving factors: nothing Exacerbating factors: weight bearing, movement and palpation Context: other ( no injury; patient has been doing lots of driving and having right lower extremity swelling and pain) Associated symptoms: ambulatory Other symptoms: none Treatments prior to arrival: other ( none) Related Data Home Medications ?Medication ?Instructions ?Recorded ?Confirmed ?Last Taken ?Type omeprazole magnesium 20 mg 20 mg PO DAILY 07/27/19 03/01/25 08/23/20 History tablet,delayed release (Prilosec OTC) Allergies Allergy/AdvReac Type Severity Reaction Status Date / Time rabeprazole Allergy Mild rash Verified 03/02/25 16:14 Review of Systems Review of Systems: All systems reviewed & are unremarkable except as noted in HPI and below Constitutional: Constitutional: Reports no additional constitutional complaints Eyes: Eyes: Reports no additional eye complaints ENT: Reports system reviewed and no additional complaints, except as documented Cardiovascular: Cardiovascular: Reports no additional cardiovascular complaints Respiratory: Respiratory: Reports no additional respiratory complaints Gastrointestinal: Gastrointestinal: Reports no additional gastrointestinal complaints Genitourinary: Genitourinary: Reports no additional male genitourinary complaints Musculoskeletal: Musculoskeletal: Reports no additional musculoskeletal complaints Integumentary/Breasts: Skin/Breast: Reports system reviewed and no additional complaints, except as docu Neurologic: Reports system reviewed and no additional complaints, except as documented Psychiatric: Psychiatric: Reports no additional psychiatric complaints Endocrine: Endocrine: Reports no additional endocrine complaints Hematologic/Lymphatic: Hematologic/Lymphatic: Reports no additional hematologic/lymphatic complaints Allergic/Immunologic: Allergic/Immunologic: Reports no additional allergic/immunologic complaints [facility] Past Medical History Medical History Chronic GERD Neuropathy Left foot Hypertension Cough Loss of taste FERRER (dyspnea on exertion) History of deep venous thrombosis or pulmonary embolus Pulmonary embolism Surgical History Surgical History Status post left foot surgery X2 History of carotid angioplasty Family History Family History Father Asthma Patient's father is Emphysema lung Mother Patient's mother is Sepsis Social History Social History Social History: Patient lives with his who works in the medical field. She is a durable power charging manipulator for healthcare. The patient is a full code. The patient has 4 sons and 1 daughter. 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 The patient is a lifelong nonsmoker and occasionally will have an alcoholic drink but otherwise does not drink on a daily basis. No marijuana or illicit drug use. Smoking status: Never smoker Second hand tobacco smoke exposure: No Alcohol intake: never Do You Feel Safe in your Home?: Yes Lack of Food: Never True Current Housing: I Have Housing Concerned About Future Housing: No Difficulty Paying Gas/Electric Bills: No Difficulty Paying for Meds: No Currently Unemployed: No Education: Trade/Vocational Certificate Difficulty w/ Childcare or Family Care: No Gender identity (if verbalized by the patient): Male Spiritual care concerns: No Exam Const: General: healthy appearing Nutritional Appearance: well nourished Orientation/consciousness: patient oriented x3 HENMT: Head: normal to inspection Ears: external ears normal Face/Nose/Sinus: Normal external nose present Eyes: Conjunctivae: conjunctivae normal Pupils: Equal, round and reactive pupils present EOM: EOMs intact bilaterally Neck: Neck: normal visual inspection Chest: Chest palpation & inspection: normal inspection of the chest Resp: Effort & Inspection: normal respiratory effort and not labored Auscultation: clear to auscultation bilaterally and no crackles Cardio: Rate: regular rate Rhythm: regular rhythm Heart sounds: no murmurs GI: Inspection: non-distended GI Palp: Yes Soft to palpation and No Tenderness to palpation present (GI) Auscultation: normal bowel sounds Skin: General skin exam: normal color Rashes: no rashes Wounds: no wounds Neuro: General: patient oriented x3, moves all extremities, no meningeal signs, no focal motor deficits and CN's II-XI intact bilaterally Extrem: General: abnormal to inspection Other: right lower extremity is tight and tender to swelling and palpation; distally neurovascularly intact Psych: Mental Status: mental status grossly normal Affect: normal affect Attitude: cooperative Course Vital Signs Vital signs: Vital Signs Temperature 37.2 C 03/02/25 15:57 Pulse Rate 77 03/02/25 15:57 Respiratory Rate 14 03/02/25 15:57 Blood Pressure 128/75 03/02/25 15:57 Pulse Oximetry 93 03/02/25 15:57 Oxygen Delivery Room Air 03/02/25 15:57 Temperature 37.2 C 03/02/25 15:57 Pulse Rate 77 03/02/25 15:57 Respiratory Rate 14 03/02/25 15:57 Blood Pressure 128/75 03/02/25 15:57 Pulse Oximetry 93 03/02/25 15:57 Oxygen Delivery Room Air 03/02/25 15:57 MDM - Extremity Injury (Lower) MDM Narrative Medical decision making narrative: patient is a 64-year-old male with right lower extremity calf pain and swelling for the past 3 days. He had a sensation initially and now it has turned into a swelling. We do not have ultrasound at this to our so we will have to transfer patient to [facility] for the stat ultrasound of the right lower extremity to rule out DVT. He will go POV per his request. He is on Xarelto already at this time for PE. Discharge Plan Discharge Clinical Impression: Localized swelling of right lower extremity Patient Disposition: Acute Care Hospital Condition: Stable Patient Language: Turkish Prescriptions: No Action Prilosec OTC 20 mg tablet,delayed release (DR/EC) 20 mg PO DAILY prednisone 10 mg tablet 10 mg PO BID 10 Days Qty: 20 0RF carvedilol 25 mg tablet See Rx Instructions .ROUTE .COMPLEX Qty: 180 2RF Dose Instruction: TAKE ONE TABLET BY MOUTH EVERY 12 HOURS Rx Instructions: TAKE ONE TABLET BY MOUTH EVERY 12 HOURS Xarelto 20 mg tablet 20 mg PO DAILY Qty: 90 2RF Rx Instructions: must administer with evening meal hydrochlorothiazide 50 mg tablet 50 mg PO DAILY Qty: 90 2RF gabapentin 600 mg tablet See Rx Instructions .ROUTE .COMPLEX Qty: 90 2RF Dose Instruction: TAKE ONE TABLET BY MOUTH THREE TIMES A DAY Rx Instructions: TAKE ONE TABLET BY MOUTH THREE TIMES A DAY Follow-up/Referrals: Roberto Anderson DO [Primary Care Provider] - Time of Disposition: 17:06
--- OUTSIDE RECORDS SUMMARY | 2025-03-02 16:01 | XMS_ITS | Encounter Summary ---
Author Organization [facility] Address [address] [place] [address] Care Team Providers Care Flake Drier Name Role Phone Conrad Borjas MD Primary Care Provider [phone] Encounter Details Date Type Department Care Team (Late st Contact Info) Description 06/12/2017 Abstract [facility] CONVERSION [address] [place] [address] , Generic MD Toy Social History Tobacco Use Types Packs/Day Years Used Date Smoking Tobacco: Never Assessed Sex and Gender Information Value Date Recorded Sex Assigned at Not on file Legal Sex Male 4:28 PM CDT Gender Identity Not on file Sexual Orientation Not on file documented as of this encounter Plan of Treatment Not on file documented as of this encounter Visit Diagnoses Not on filedocumented in this encounter Care Teams Flake Drier Relationship Specialty Start Date End Date Conrad Borjas MD [address] [place] [address] PCP - General INTERNAL MEDICINE 07/11/18 documented as of this encounter
--- OUTSIDE RECORDS SUMMARY | 2025-03-02 16:01 | XMS_ITS | Clinical Summary ---
Author Organization [facility] Address [address] [place] [address] Care Team Providers Care Staff Radiation Therapist Name Role Phone Unavailable Primary Care Provider Unavailabl e Source Comments [facility],non-owned Affiliates and Associated Physician Practices is amultiple site organization consisting of ambulatory clinics and hospital sitesin [place], [place], [place] and [place]. This disclosure is being madepursuant to the Care Everywhere program and may not contain all information available regarding this patient. Last updated 18.[facility] [employer] Social History Tobacco Use Types Packs/Day Years Used Date Smoking Tobacco: Never Assessed Sex and Gender Information Value Date Recorded Sex Assigned at Not on file Legal Sex Male 9:21 AM CDT Gender Identity Not on file Sexual Orientation Not on file Plan of Treatment Health Maintenance Due Date Last Done Comments COLOGUARD (AGES 45-75) - COL ON CA SCREENING 1960 COLON MONITORING 1960 COLONOSCOPY - COLON CA SCREENING 1960 CT COLONOGRAPHY - COLON CA SCREENING 1960 Colorectal Cancer Screening 1960 FIT - COLON CA SCREENING 1960 FLEX SIG - COLON CA SCREENING 1960 LIPID TESTING 1960 HIV SCREENING 10/24/1975 HEPATITIS C SCREENING 10/19/1978 DTAP/TDAP/TD VACCINES (1 - Tdap) 10/24/1979 PNEUMOCOCCAL VACCINE 50+ (1 of 1 - PCV) 2010 ZOSTER VACCINE (1 of 2) 2010 COVID-19 VACCINE ( - 2023-2 5 season) 2024 DEPRESSION SCREENING 08/23/2024 INFLUENZA VACCINE (Season Ended) 2025 08/03/20 18 Respiratory Syncytial Virus (RSV) Vaccine Pt: or over 60 yrs (1 - 1-dose 75+ series) 10/24/2035 HEPATITIS B VACCINE Aged Out No longe r eligible based on patient's age to complete this topic HIB VACCINE Aged Out No longer eligi ble based on patient's age to complete this topic HPV VACCINE Aged Out No longer eligi ble based on patient's age to complete this topic MENINGOCOCCAL (Group B) VACC INE SHARED DECISION-MAKING Aged Out No longer eligibl e based on patient's age to complete this topic MENINGOCOCCAL GROUPS A/C/Y/W VACCINE Aged Out No longer eligible b ased on patient's age to complete this topic
--- OUTSIDE RECORDS SUMMARY | 2025-03-02 16:01 | XMS_ITS | Referral Summary ---
Author Organization [facility] Address [address] [place] [address] Care Team Providers Care Administrative Receptionist Name Role Phone Roberto Anderson DO Primary Care Provider [phone] Encounters Date Type Department Care Team Description 02/15/2025 6:55 AM CDT Lab [address] [address] from Last 3 Months Allergies No known active allergies Medications Xarelto 20 mg tablet 05/15/2024 Active omeprazole (PriLOSEC) 10 mg capsule Take 1 capsule (10 mg total) by mouth daily Active gabapentin (NEURONTIN) 600 mg tablet Take 1 tablet (600 mg total) by mouth 3 (three) times a day Active carvediloL (COREG) 25 mg tablet Take 1 tablet (25 mg total) by mouth 2 (two) times a day Active acetaminophen (TYLENOL) 325 mg tablet Take 1 tablet (325 mg total) by mouth every 4 (four) hours as needed Active hydroCHLOROthia zide (HYDRODIURIL) 50 mg tablet 05/14/2024 Active benzonatate (TESSALON) 100 mg capsuleIndicati ons:Cough Take 1 capsule (100 mg total) by mouth 3 (three) times a day as needed for cough 42 capsule 05/29/2024 Active promethazine-DM (PROMETHAZINE-D M) 1.25-3 mg/mL syrupIndication s:Community acquired pneumonia Take 5-10 mL by mouth 4 (four) times a day as needed for cough 120 mL 05/30/2024 Active Active Problems Problem Noted Date Diagnosed Date Pain of foot 01/17/2013 Arthralgia of ankle 10/18/2012 Social History Tobacco Use Types Packs/Day Years Used Date Smoking Tobacco: Never Tobacco Cessation:Counseling Given: Not Answered Alcohol Use Standard Drinks/Week Comments Yes 0 (1 standard drink = 0.6 oz pur e alcohol) occassionally Personal Safety Answer Date Recorded Have you ever been in or are you currently in a harmful physical or emotional relationship or is someone making you feel afraid or unsafe? 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 Gender Identity Not on file Sexual Orientation Not on file Last Filed Vital Signs Vital Sign Reading Time Taken Comments Blood Pressure 126/80 05/29/2024 9:33 AM CDT Pulse 67 05/29/2024 9:33 AM CDT Temperature 37.6 C (99.7 F) 05/29/2024 9:33 AM CDT Respiratory Rate 18 05/29/2024 9:33 AM CDT Oxygen Saturation 99% 05/29/2024 9:33 AM CDT Inhaled Oxygen Concentration - - Weight 111.1 kg (245 lb) 05/29/2024 9:33 AM CDT Height 182.9 cm (6') 05/29/2024 9:33 AM CDT Body Mass Index 33.23 05/29/2024 9:33 AM CDT Plan of Treatment Not on file Procedures Procedure Name Priority Date/Time Associated Diagnosis Comments EGFR Routine 02/15/2025 7:07 AM CDT DIFFERENTIAL AUTO Routine 02/15/2025 7:0 7 AM CDT HEMOGLOBIN A1C Routine 02/15/2025 7:07 AM CDT LIPID PANEL Routine 02/15/2025 7:07 AM CDT PSA SCREEN Routine 02/15/2025 7:07 AM CDT COMPREHENSIVE METABOLIC PANEL Routine 02/15/2025 7:07 AM CDT CBC WITH AUTO DIFFERENTIAL Routine 02/15/2025 7:07 AM CDT from Last 3 Months Results * eGFR (02/15/2025 7:07 AM CDT) eGFR >90 >=60 mL/min/1. 73 m2 Comment: Interpretive Data Reference Interval Normal >/= 90 mL/min/1.73m2 Mildly decreased* 60 - 89 mL/min/1.73m2 Mildly to moderately decreased 45 - 59 mL/min/1.73m2 Moderately to severely decreased 30 - 44 mL/min/1.73m2 Severely decreased 15 - 29 mL/min/1.73m2 Kidney Failure < 15 mL/min/1.73m2 *Relative to young adult level Estimated glomerular filtration rate is determined by the 2020 CKD-EPI equation recommended by the National Kidney Foundation (A Unifying Approach to GFR Estimation: Recommendations of the NKF-ASK Task Force on Reassessing the Inclusion of Race in Diagnosing Kidney Disease, JASN 2020). The CKD-EPI equation should not be used for patients with unstable renal function and has not been validated in children and those over 70. Current interpretive data was last reviewed 2021. Blood 02/15/2025 7:07 AM CDT 02/15/2025 7:16 AM CDT us Roberto Anderson DO LAB BLOOD ORDERABLES Final Resul t [facility] 1 [facility] Department [place] [address] * (ABNORMAL) Differential, auto (02/15/2025 7:07 AM CDT) Neutrophil abs 3.72 1.50 - 6.50 K/cumm Imm gran abs 0.02 0.00 - 0.10 K/cumm [facility] ([place]) Lymphocyte abs 3.65(H) 0.80 - 3.30 K/cumm [facility]) Monocyte abs 0.73 0.20 - 0.80 K/cumm [facility]) Eosinophil abs 0.11 0.00 - 0.50 K/cumm [facility]) Basophil abs 0.04 0.00 - 0.10 K/cumm [facility]) Neutrophil pct 45.1 % [facility]) Comment: Interpretive Data Percent cell count reference ranges are not reported, since discordance with absolute values may lead to misinterpretation of CBC data. Current Interpretive Data was last revised on 2017. Imm gran pct 0.2 % [facility]) Comment: Interpretive Data Percent cell count reference ranges are not reported, since discordance with absolute values may lead to misinterpretation of CBC data. Current Interpretive Data was last revised on 2017. Lymphocyte pct 44.1 % [facility] Comment: Interpretive Data Percent cell count reference ranges are not reported, since discordance with absolute values may lead to misinterpretation of CBC data. Current Interpretive Data was last revised on 2017. Monocyte pct 8.8 % [facility]) Comment: Interpretive Data Percent cell count reference ranges are not reported, since discordance with absolute values may lead to misinterpretation of CBC data. Current Interpretive Data was last revised on 2017. Eosinophil pct 1.3 % [facility] Comment: Interpretive Data Percent cell count reference ranges are not reported, since discordance with absolute values may lead to misinterpretation of CBC data. Current Interpretive Data was last revised on 2017. Basophil pct 0.5 % [facility]) Comment: Interpretive Data Percent cell count reference ranges are not reported, since discordance with absolute values may lead to misinterpretation of CBC data. Current Interpretive Data was last revised on 2017. Blood 02/15/2025 7:07 AM CDT 02/15/2025 7:16 AM CDT us Roberto Anderson DO LAB BLOOD ORDERABLES Final Resul t [facility] ([place]) 1 [facility] Department [place] [address] * PSA screen (02/15/2025 7:07 AM CDT) PSA-Total 3.84 <=5.40 ng/mL Comment: Interpretive Data AGE SEX REFERENCE INTERVAL 0 minutes-150 years Female None 0 minutes-49 years Male None 50-59 years Male 0-3.90 60-69 years Male 0-5.40 70-79 years Male 0-6.20 80-150 years Male 0-6.20 The Frank PSA Total assay procedure was used. Results from different manufacturers or methods may not be comparable. Serial testing should be performed using the same method. Current interpretive data last revised 21. Blood 02/15/2025 7:07 AM CDT 02/15/2025 7:16 AM CDT us Roberto Anderson DO LAB BLOOD ORDERABLES Final Resul t [facility] ([place]) 1 [facility] Department [place] [address] * CBC with auto differential (02/15/2025 7:07 AM CDT) WBC 8.27 3.80 - 9.90 K/cumm Hgb 16.4 13.0 - 17.5 g/dL [facility] Hct 48.0 38.9 - 50.3 % [facility] Plt 283 150 - 400 K/cumm [facility] MPV 10.8 9.1 - 12.3 fL [facility] RBC 5.64 4.30 - 5.80 M/cumm [facility]) MCV 85.1 81.3 - 96.4 fL [facility] MCH 29.1 27.1 - 33.3 pg [facility]) MCHC 34.2 32.3 - 35.7 g/dL [facility] RDW CV 13.1 11.1 - 14.9 % [facility] RDW SD 40.3 35.7 - 48.1 fL [facility]) NRBC abs 0.00 0.00 - 0.01 K/cumm [facility]) Blood 02/15/2025 7:07 AM CDT 02/15/2025 7:16 AM CDT AudioMicro DO LAB BLOOD ORDERABLES Final Resul t Performing Organization Address [facility] Co de Phone Number [facility] ([place]) 1 [facility] [place] [address] * (ABNORMAL) Hemoglobin A1c (02/15/2025 7:07 AM CDT) Hgb A1C 6.0(H) 4.0 - 5.6 % Estimated Average Glucose 126 mg/dL [facility]) Comment: The ADA recommends reporting an estimated Average Glucose (eAG) with all Hemoglobin A1c results using the equation derived from a study of 507 normal and diabetic adults. Minority populations were underrepresented and children were not included. (Diabetes Care 31:3986-5493, 2008). The eAG is not equivalent to a fasting glucose. Blood 02/15/2025 7:07 AM CDT 02/15/2025 7:16 AM CDT Roberto Monica DO LAB BLOOD ORDERABLES Final Resul t Performing Organization Address [facility] de Phone Number [facility] ([place]) [address] [place] [address] * Lipid panel (02/15/2025 7:07 AM CDT) Cholesterol 176 30 - 199 mg/dL Comment: Interpretive Data Ages < or = 19 years Acceptable: <170 mg/dL Borderline high: 170-199 mg/dL High: >or= 200 mg/dL Ages > or = 20 years Desirable: <200 mg/dL Borderline high: 200-239 mg/dL High: >or= 240 mg/dL Literature References: 1. Expert Panel on Integrated Guidelines for Cardiovascular Health and Risk Reduction in Children and Adolescents. Pediatrics 2011;128:S213 2. NCEP Expert Panel. Circulation 2004;110:227 Current Interpretive Data was last revised on 2018. Triglycerides 93 <=149 mg/dL [facility]) Comment: Interpretive Data Ages < or = 9 years Acceptable: <75 mg/dL Borderline high: 75-99 mg/dL High: >or= 100 mg/dL Ages 10 to 20 years Acceptable: <90 mg/dL Borderline high: 90-129 mg/dL High: >or= 130 mg/dL Ages > or = 20 years Desirable: <150 mg/dL Borderline high: 150-199 mg/dL High: 200-499 mg/dL Very high: >or= 499 mg/dL Literature References: 1. Expert Panel on Integrated Guidelines for Cardiovascular Health and Risk Reduction in Children and Adolescents. Pediatrics 2011;128:S213 2. NCEP Expert Panel. Circulation 2004;110:227 Current Interpretive Data was last revised on 2018. HDL 50 >=40 mg/dL [facility]) Comment: Interpretive Data Ages < or = 19 years Acceptable: >45 mg/dL Borderline low: 40-45 mg/dL Low: <40 mg/dL Ages > or = 20 years Desirable: >or= 60 mg/dL Low: <40 mg/dL Literature References: 1. Expert Panel on Integrated Guidelines for Cardiovascular Health and Risk Reduction in Children and Adolescents. Pediatrics 2011;128:S213 2. NCEP Expert Panel. Circulation 2004;110:227 Current Interpretive Data was last revised on 2018. LDL, calculated 109 <=129 mg/dL [facility]) Comment: Interpretive Data Ages < or = 19 years Acceptable: <110 mg/dL Borderline high: 110-129 mg/dL High: >or= 130 mg/dL Ages > or = 20 years Optimal: <100 mg/dL Near optimal: 100-129 mg/dL Borderline high: 130-159 mg/dL High: >160 mg/dL Calculated using the Thomas LDL-C estimating equation. This equation was implemented on 2024. Prior to this date LDL-C was estimated using the Friedewald equation. Literature References: 1. Expert Panel on Integrated Guidelines for Cardiovascular Health and Risk Reduction in Children and Adolescents. Pediatrics 2011;128:S213 2. NCEP Expert Panel. Circulation 2004;110:227 3. Thomas Driver al. KYMBERLY Cardiol. 2020 December 21;5(5):540-548. doi: 10.1001/jamacardio.2020.0013 Current Interpretive Data was last revised on 2024. Non-HDL Cholesterol 126 mg/dL [facility]) Comment: Interpretive Data Ages < or = 19 years Acceptable: <120 mg/dL Borderline high: 120-144 mg/dL High: >145 mg/dL Ages > or = 20 years When triglycerides are >200 mg/dL, Non-HDL cholesterol is a secondary target of therapy with treatment goals that are 30 mg/dL greater than the LDL cholesterol target. Literature References: 1. Expert Panel on Integrated Guidelines for Cardiovascular Health and Risk Reduction in Children and Adolescents. Pediatrics 2011;128:S213 2. NCEP Expert Panel. Circulation 2004;110:227 Current Interpretive Data was last revised on 2018. Chol/HDL ratio 4 [facility]) Blood 02/15/2025 7:07 AM CDT 02/15/2025 7:16 AM CDT us Roberto Anderson DO LAB BLOOD ORDERABLES Final Resul t [facility] ([place]) 1 [facility] Department [place] [address] * Comprehensive metabolic panel (02/15/2025 7:07 AM CDT) Sodium 138 135 - 145 mmol/L Potassium, pl 3.6 3.3 - 4.9 mmol/L [facility] Chloride 99 97 - 110 mmol/L [facility]) CO2 29 22 - 32 mmol/L [facility]) Anion gap 11 2 - 15 mmol/L [facility] BUN 13 6 - 25 mg/dL [facility] Creatinine 0.89 0.80 - 1.30 mg/dL [facility]) Glucose 107 70 - 199 mg/dL [facility]) Comment: Interpretive Data Fasting glucose >/= 126 mg/dl is diagnostic for diabetes. Fasting is defined as no caloric intake for at least 8 hours. Fasting glucose between 100 mg/dl to 125 mg/dl is diagnostic of prediabetes. In a patient with classic symptoms of hyperglycemia or hyperglycemic crisis, a random glucose >/= 200 mg/dl is diagnostic for diabetes. In the absence of unequivocal hyperglycemia, results should be confirmed by repeat testing. The classification and Diagnosis of Diabetes Diabetes Care 202; 46: S19-S40. Current interpretive data was last revised 2022. Calcium 9.7 8.5 - 10.3 mg/dL [facility]) Bilirubin, total 0.6 0.1 - 1.2 mg/dL [facility]) Protein, pl 7.2 6.5 - 8.5 g/dL [facility]) Albumin 4.2 3.5 - 5.0 g/dL [facility]) Alk phos 56 40 - 130 Units/L [facility]) ALT 18 7 - 55 Units/L [facility] AST 33 10 - 50 Units/L [facility]) Blood 02/15/2025 7:07 AM CDT 02/15/2025 7:16 AM CDT us Roberto Anderson DO LAB BLOOD ORDERABLES Final Resul t [facility] ([place]) 1 [facility] [place] [address] from Last 3 Months Insurance [facility] [employer] [employer] [facility] Address: [facility] [address] [place] [address] Care Teams Administrative Receptionist Relationship Specialty Start Date End Date Roberto Anderson DO [address] [id number] PCP - General Internal Medicine 11/10/24
--- OUTSIDE RECORDS SUMMARY | 2025-03-02 16:01 | XMS_ITS | Encounter Summary ---
Author Organization [facility] Address [address] [place] [address] Care Team Providers Care C.O.D. Clerk Name Role Phone Conrad Borjas MD Primary Care Provider [phone] Encounter Details Date Type Department Care Team (Late st Contact Info) Description 01/28/2019 Abstract [facility] [address] [place] [address] , Generic ConversionMD Social History Tobacco Use Types Packs/Day Years Used Date Smoking Tobacco: Never Smokeless Tobacco: Never Alcohol Use Standard Drinks/Week Comments No 0 (1 standard drink = 0.6 oz pur e alcohol) AUDIT-C Answer Date Recorded Frequency of Alcohol Consumption Never 07/21/2018 Average Number of Drinks Not on file 018 Frequency of Binge Drinking Not on file 06/24 Sex and Gender Information Value Date Recorded Sex Assigned at Not on file Legal Sex Male 4:28 PM CDT Gender Identity Not on file Sexual Orientation Not on file documented as of this encounter Plan of Treatment Not on file documented as of this encounter Visit Diagnoses Not on filedocumented in this encounter Care Teams C.O.D. Clerk Relationship Specialty Start Date End Date Conrad Borjas MD [address] [place] [address] PCP - General INTERNAL MEDICINE 07/11/18 documented as of this encounter
--- OUTSIDE RECORDS SUMMARY | 2025-03-02 16:01 | XMS_ITS | Encounter Summary ---
Author Organization [facility] Address [facility] [place] [address] Care Team Providers Care Medical Imaging Technologist Name Role Phone Conrad Borjas MD Primary Care Provider [phone] Encounter Details Date Type Department Care Team (Late st Contact Info) Description 07/07/2018 Abstract [facility] [place] [address], [place] [address] Tyler Ricci MD [address] [address] [place] [address] Social History Tobacco Use Types Packs/Day Years [...] on filedocumented in this encounter Care Teams Medical Imaging Technologist Relationship Specialty Start Date End Date Conrad Borjas MD [address] [place] [address] PCP - General INTERNAL MEDICINE 07/11/18 documented as of this encounter
--- OUTSIDE RECORDS SUMMARY | 2025-03-02 16:01 | XMS_ITS | Encounter Summary ---
Author Organization [facility] Address [address] [place] [address] Care Team Providers Care Motion Picture Set Worker Name Role Phone Conrad Borjas MD Primary Care Provider [phone] Encounter Details Date Type Department Care Team (Latest Contact Info) Description 06/28/2018 Abstract [facility] , Levy Yeager MD Social History Tobacco Use Types Packs/Day Years [...] on filedocumented in this encounter Care Teams Motion Picture Set Worker Relationship Specialty Start Date End Date Conrad Borjas MD [address] [place] [address] PCP - General INTERNAL MEDICINE 07/11/18 documented as of this encounter
--- OUTSIDE RECORDS SUMMARY | 2025-03-02 16:01 | XMS_ITS | Clinical Summary ---
Author Organization [facility] Address [address] [place] [address] Care Team Providers Care Regenerator Operator Name Role Phone Roberto Anderson DO Primary Care Provider [phone] Allergies No known active allergies Medications Xarelto [...] of foot 01/17/2013 Arthralgia of ankle 10/18/2012 Encounters Date Type Department Care Team Description 02/15/2025 6:55 AM CDT Lab [address] [address] from Last 3 Months Medical History Medical History Date Comments Hx Other Medical GERD; Comments: [facility] 11/07/2014 - Hypertension Hypertension Hx Other Medical seasonal allerg ies; Comments: [facility] 11/07/2014 - Hx Other Medical depression; Com ments: [facility] 11/07/2014 - Hx Other Medical occluded right carotid; Comments: [facility] 11/07/2014 - Hx Other Medical ankle surgery; Comments: [facility] 11/07/2014 - Hx Other Medical right carotid a neurysm repair; Comments: [facility] 11/07/2014 - Family History Medical History Relation Name Comments COPD Brother 3 COPD; Other Brother 3 Alive and well; Emphysema Father 2 Emphysema; Caus e of : Emphysema Cirrhosis Mother Cirrhosis; Relation Name Status Comments Brother 1 Alive Brother 2 Alive Brother 3 Father 1 (Age 65) Father 2 Mother Social History Tobacco Use Types Packs/Day Years [...] on file 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 Gender Identity Not on file Sexual Orientation Not on file Obstetrics History Last Filed Vital Signs Vital Sign Reading [...] 05/29/2024 9:33 AM CDT Plan of Treatment Health Maintenance Due Date Last Done Comments Colon Cancer Screening-Colonoscopy 1960 Depression Screening 1960 Hepatitis C Screening 1960 DTaP/Tdap/Td Vaccine (1 - Tdap) 10/24/1971 Hepatitis B Screening 1978 Regular Well Visit/Exam 18-64 1978 Zoster Vaccine (1 of 2) 2010 Covid-19 Vaccine (3 - 2023-2 5 season) 2024 05/05/2021, 04/12/2021 Influenza Vaccine (#1) 2025 08/03/2018 Prostate Cancer Screening-PSA 02/15/2027, 09/11/2023, 12/26/2022 Pneumococcal vaccine <65 Aged Out No longer eligible based on patient's age to complete this topic Procedures Procedure Name Priority Date/Time Associated Diagnosis [...] BLOOD ORDERABLES Final Resul t [facility] ([place]) 1 [facility] [place] [address] * (ABNORMAL) Differential, auto (02/15/2025 7:07 AM [...] revised on 2017. Monocyte pct 8.8 % [facility] ([place]) Comment: Interpretive Data Percent cell count reference ranges are not reported, since discordance with absolute values may lead to misinterpretation of CBC data. Current Interpretive Data was last revised on 2017. Eosinophil pct 1.3 % [facility] ([place]) Comment: Interpretive Data Percent cell count reference ranges are not reported, since discordance with absolute values may lead to misinterpretation of CBC data. Current Interpretive Data was last revised on 2017. Basophil pct 0.5 % [facility] ([place]) Comment: Interpretive Data Percent cell count reference ranges are not reported, since discordance with absolute values may lead to misinterpretation of CBC data. Current Interpretive Data was last revised on 2017. Blood 02/15/2025 7:07 AM CDT 02/15/2025 7:16 AM CDT us Robertoethel Anderson DO LAB BLOOD ORDERABLES Final Resul t [facility] ([place]) 1 [facility] [place] [address] * PSA screen (02/15/2025 7:07 AM CDT) [...] CDT 02/15/2025 7:16 AM CDT us Roberto Monica DO LAB BLOOD ORDERABLES Final Resul t [facility] ([place]) 1 [facility] [employer] [place] [address] * CBC with auto differential (02/15/2025 7:07 AM CDT) WBC 8.27 3.80 - 9.90 K/cumm Hgb 16.4 13.0 - 17.5 g/dL [facility] ([place]) Hct 48.0 38.9 - 50.3 % [facility] ([place]) Plt 283 150 - 400 K/cumm [facility] ([place]) MPV 10.8 9.1 - 12.3 fL [facility] ([place]) RBC 5.64 4.30 - 5.80 M/cumm [facility] ([place]) MCV 85.1 81.3 - 96.4 fL [facility] ([place]) MCH 29.1 27.1 - 33.3 pg [facility] ([place]) MCHC 34.2 32.3 - 35.7 g/dL [facility] ([place]) RDW CV 13.1 11.1 - 14.9 % [facility] ([place]) RDW SD 40.3 35.7 - 48.1 fL [facility] ([place]) NRBC abs 0.00 0.00 - 0.01 K/cumm [facility] ([place]) Blood 02/15/2025 7:07 AM CDT 02/15/2025 7:16 AM CDT us Robertojoan Anderson DO LAB BLOOD ORDERABLES Final Resul t [facility] ([place]) 1 [facility] [place] [address] * (ABNORMAL) Hemoglobin A1c (02/15/2025 7:07 AM CDT) Hgb A1C 6.0(H) 4.0 - 5.6 % Estimated Average Glucose 126 mg/dL [facility] ([place]) Comment: The ADA recommends reporting an estimated Average Glucose (eAG) with all Hemoglobin A1c results using the equation derived from a study of 507 normal and diabetic adults. Minority populations were underrepresented and children were not included. (Diabetes Care 31:1893-6818, 2008). The eAG is not equivalent to a fasting glucose. Blood 02/15/2025 7:07 AM CDT 02/15/2025 7:16 AM CDT us Roberto Anderson DO LAB BLOOD ORDERABLES Final Resul t [facility] ([place]) 1 [facility] [place] [address] * Lipid panel (02/15/2025 7:07 AM CDT) [...] on 2018. HDL 50 >=40 mg/dL [facility] ([place]) Comment: Interpretive Data Ages < or [...] 2018. LDL, calculated 109 <=129 mg/dL [facility] ([place]) Comment: Interpretive Data [...] NCEP Expert Panel. Circulation 2004;110:227 3. Thomas Damon et al. KYMBERLY Cardiol. 2019December 21;5(5):540-548. doi: 10.1001/jamacardio.2020.0013 Current Interpretive Data was last revised on 2024. Non-HDL Cholesterol 126 mg/dL [facility] ([place]) Comment: Interpretive Data [...] last revised on 2018. Chol/HDL ratio 4 [facility] ([place]) Blood 02/15/2025 7:07 AM CDT 02/15/2025 7:16 AM CDT us Roberto Yarbroughk DO LAB BLOOD ORDERABLES Final Resul t [facility] ([place]) 1 [facility] [place] [address] * Comprehensive metabolic panel (02/15/2025 7:07 AM CDT) Sodium 138 135 - 145 mmol/L Potassium, pl 3.6 3.3 - 4.9 mmol/L [facility] ([place]) Chloride 99 97 - 110 mmol/L [facility] ([place]) CO2 29 22 - 32 mmol/L [facility] ([place]) Anion gap 11 2 - 15 mmol/L [facility] ([place]) BUN 13 6 - 25 mg/dL [facility] ([place]) Creatinine 0.89 0.80 - 1.30 mg/dL [facility] ([place]) Glucose 107 70 - 199 mg/dL [facility] ([place]) Comment: Interpretive Data Fasting glucose [...] Final Resul t [facility] ([place]) 1 [facility] [place] [address] from Last 3 Months Insurance [facility] [employer] Address: [facility] [id number] [place] [address] Care Teams Regenerator Operator Relationship Specialty Start Date End Date Roberto Anderson DO [address] [place] [address] PCP - General Internal Medicine 11/10/24
--- OUTSIDE RECORDS SUMMARY | 2025-03-02 16:01 | XMS_ITS | Clinical Summary ---
Author Organization [facility] Address [facility] [place] [address] Care Team Providers Care Senior Mechanical Estimator Name Role Phone Conrad Borjas MD Primary Care Provider [phone] Allergies No known active allergies Medications acetaminophen (TYLENOL) 325 MG tablet Take 325 mg by mouth every 4 (four) hours as needed for Pain. Active carvedilol 25 MG tabletIndication s:Hypertension Take 25 mg by mouth 2 (two) times daily. Active gabapentin 600 MG tabletIndication s:nerve pain Take 600 mg by mouth 3 (three) times daily. Active hydrochlorothiaz tino (MICROZIDE) 12.5 MG capsuleIndicatio ns:Hypertension Take 50 mg by mouth every morning. Active multi vitamin/minerals tabletIndication s:supplement Take 1 tablet by mouth daily. Active omeprazole 10 MG capsuleIndicatio ns:Gastroesophag eal Reflux Disease Take 10 mg by mouth daily. Active apixaban (ELIQUIS) 5 MG tablet TAKE 10 MG BID for 1 week and then 5 Mg BID for 23 days 74 tablet 08/04/2018 Active Active Problems Problem Noted Date Diagnosed Date Pulmonary embolism, bilateral (CMS/HCC HHS/HCC) 08/02/2018 S/P cervical spinal fusion 08/01/2018 Immunizations Immunization Administration Dates Next Due Fluarix (IIV4) 08/03/2018 Family History Medical History Relation Comments Asthma Father Emphysema Father Liver Disease Mother Relation Status Comments Father Mother Social History Tobacco Use Types Packs/Day [...] Sign Reading Time Taken Comments Blood Pressure 130/84 09/12/2018 9:24 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 Pulse 65 09/12/2018 9:24 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 Temperature 37.4 C (99.3 F) 08/04/2018 7:43 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 Respiratory Rate 18 08/04/2018 7:43 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 Oxygen Saturation 94% 08/04/2018 7:43 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 Inhaled Oxygen Concentration - - Weight 121.6 kg (268 lb) 09/12/2018 9:24 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 Height 180.3 cm (5' 11) 09/12/2018 9:24 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 Body Mass Index 37.38 09/12/2018 9:24 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 Plan of Treatment Health Maintenance Due Date Last Done Comments Colorectal Cancer Screening Colonoscopy (10 Years) 1960 Annual Physical 10/24/1963 Hepatitis C 1978 DTaP, Tdap and Td Vaccines ( 1 - Tdap) 10/24/1979 Pneumococcal Vaccine: 50+ Ye ars (1 of 1 - PCV) 2010 Zoster Vaccines (1 of 2) 2010 COVID-19 Vaccine ( - 2023-2 5 season) 2024 RSV Immunization or 60+ Years (1 - 1-dose 75+ series) 10/24/2035 Meningococcal B Vaccine Aged Out No l onger eligible based on patient's age to complete this topic Meningococcal Vaccine Aged Out No juan carlos yee eligible based on patient's age to complete this topic RSV Immunizations Under 20 Months Aged Out No longer eligible based on patient's age to complete this topic Medical Devices Implanted Type Area Primary Care Sales Representative Device Identifier Shelf Expiration Date Model / Serial / Lot Melo-C Anchoring Plate Implanted:Qty: 1 on 07/29/2018 by Tyler Ricci MD at [facility] Plate N/A: Spine Cervical LDR SPINE [facility] 06/23/2022 [id number] / [id number] / [id number] Tissue Surgiflo 8ml - Sna Implanted:Qty: 2 on 07/29/2018 by Tyler Ricci MD at [facility] Tissue N/A: Cranial [employer] 05/22/2020 [id number] / [id number] / [id number] Asim-I Implant Implanted:Qty: 1 on 07/29/2018 by Tyler Ricci MD at [facility] N/A: Spine Cervical LDR SPINE [employer] 01/21/2021 [id number] / N/A / [id number] Melo-C Long Anchoring Plate Implanted:Qty: 1 on 07/29/2018 by Tyler Ricci MD at [facility] N/A: Spine Cervical LDR [employer]INE [employer] 02/20/2022 [id number] / N/A / [id number] Putty Dbm Accell 2.5cc - [id number] Implanted:Qty: 1 on 07/29/2018 by Tyler Ricci MD at [facility] N/A: Spine Cervical [employer] 05/20/2019 [id number] / [id number] / [id number] Description: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 - [id number] Implanted:Qty: 1 on 07/29/2018 by Tyler Ricci MD at [facility] N/A: Spine Cervical [employer] 06/05/2023 [id number] / [id number] / [id number] Description:No reconstitutio n needed Melo-C Implant Implanted:Qty: 1 on 07/29/2018 by Tyler Ricci MD at [facility] N/A: Spine Cervical LDR [employer] 04/23/2021 [id number] / NA / [id number] Explanted Type Area Primary Care Sales Representative Device Identifier Shelf Expiration Date Model / Serial / Lot Distraction Pin Explanted:Qty: 2 on 07/29/2018 by Tyler Ricci MD at [facility] Pin N/A: Spine Cervical [employer] 05/23/2023 [id number] / NA / [id number] Pins [place] Skull Adult Disposable - Sna Explanted:Qty: 1 on 07/29/2018 by Tyler Ricci MD at [facility] N/A: Cranial [employer] 06/21/2019 [id number] / NA / [id number] Sterile Long Starter Awl For Melo-Canchoring Plate Explanted:Qty: 1 on 07/29/2018 by Tyler Ricci MD at [facility] N/A: Spine Cervical LDR [employer] 06/23/2020 [id number] / N/A / [id number] Sterile Short Starter Awl For Melo-C Anchoring Plate Implanted:Qty: 1 Explanted:Qty: 1 on 07/29/2018 at [facility] N/A: Spine Cervical LDR [employer] 08/23/2020 [id number] / NA / [id number] Insurance UMR Advance Directives Documents on File Type Date Recorded Patient Tube Handler Expl anation Legal Documents 06/14/2014 SLEGAL * Full Code (Latest Code Status on File) Date Activated Date Inactivated Comments 08/02/2018 12:09 PM 08/04/2018 4:55 PM Care Teams Senior Mechanical Estimator Relationship Specialty Start Date End Date Conrad Borjas MD [address] [place] [address] PCP - General INTERNAL MEDICINE 07/11/18
--- OUTSIDE RECORDS SUMMARY | 2025-03-02 16:48 | XMS_ITS | Encounter Summary ---
Author Organization [facility] Address [address] [place] [address] Care Team Providers Care Adjunct Philosophy Faculty Name Role Phone Conrad Borjas MD Primary Care Provider [phone] Encounter Details Date Type Department Care Team (Late st Contact Info) Description 01/28/2019 Abstract SFL CONVERSION [address] [place] [address] , Generic ConversionMD Social History Tobacco Use [...] on filedocumented in this encounter Care Teams Adjunct Philosophy Faculty Relationship Specialty Start Date End Date Conrad Borjas MD [address] [place] [address] PCP - General INTERNAL MEDICINE 07/11/18 documented as of this encounter
--- OUTSIDE RECORDS SUMMARY | 2025-03-02 16:48 | XMS_ITS | Clinical Summary ---
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 Pulse 65 09/12/2018 9:24 AM GLASS OR MIRROR INSPECTOR Temperature 37.4 C (99.3 F) 08/04/2018 7:43 AM GLASS OR MIRROR INSPECTOR Respiratory Rate 18 08/04/2018 7:43 AM GLASS OR MIRROR INSPECTOR Oxygen Saturation 94% 08/04/2018 7:43 AM GLASS OR MIRROR INSPECTOR Inhaled Oxygen Concentration - - Weight 121.6 kg (268 lb) 09/12/2018 9:24 AM GLASS OR MIRROR INSPECTOR Height 180.3 cm (5' 11) 09/12/2018 9:24 AM GLASS OR MIRROR INSPECTOR Body Mass Index 37.38 09/12/2018 9:24 AM GLASS OR MIRROR INSPECTOR Plan of Treatment Health Maintenance Due Date [...] this topic Medical Devices Implanted Type Area Kersey Department Supervisor Device Identifier Shelf Expiration Date Model / Serial / Lot Melo-C Anchoring Plate Implanted:Qty: 1 on 07/29/2018 by Tyler Ricci MD at [facility] Plate N/A: Spine Cervical LDR [facility] 06/23/2022 [id number] / NA / [id number] Tissue Surgiflo 8ml - Sna Implanted:Qty: 2 on 07/29/2018 by Tyler Ricci MD at [facility] Tissue N/A: Cranial [employer] - [employer]SE[employer]N [employer]SELY[employer] 05/22/2020 [id number] / NA / [id number] Asim-I Implant Implanted:Qty: 1 on 07/29/2018 by Tyler Ricci MD at [facility] N/A: Spine Cervical LDR SPINE [employer] 01/21/2021 [id number] / N/A / [id number] Melo-C Long Anchoring Plate Implanted:Qty: 1 on 07/29/2018 by Tyler Ricci MD at [facility] N/A: Spine Cervical LDR SPINE [employer] 02/20/2022 [id number] / N/A / [id number] Putty Dbm Accell 2.5cc - [id number] Implanted:Qty: 1 on 07/29/2018 by Tyler Ricci MD at [facility] N/A: Spine Cervical SEASPINE 05/20/2019 [id number] / [id number] / [id number] Description: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 - [id number] Implanted:Qty: 1 on 07/29/2018 by Tyler Ricci MD at [facility] N/A: Spine Cervical ALLOSOURCE 06/05/2023 [id number] / [id number] / [id number] Description:No reconstitutio n needed Melo-C Implant Implanted:Qty: 1 on 07/29/2018 by Tyler Ricci MD at [facility] N/A: Spine Cervical LDR SPINE [employer] 04/23/2021 [id number] / NA / [id number] Explanted Type Area Kersey Department Supervisor Device Identifier Shelf Expiration Date Model / Serial / Lot Distraction Pin Explanted:Qty: 2 on 07/29/2018 by Tyler Ricci MD at [facility] Pin N/A: Spine Cervical NEW AGE MEDICAL 05/23/2023 [id number] / NA / [id number] Pins [place] Skull Adult Disposable - Sna Explanted:Qty: 1 on 07/29/2018 by Tyler Ricci MD at [facility] N/A: Cranial [employer] LACHELLE 06/21/2019 [id number] / NA / [id number] Sterile Long Starter Awl For Melo-Canchoring Plate Explanted:Qty: 1 on 07/29/2018 by Tyler Ricci MD at [facility] N/A: Spine Cervical LDR SPINE [employer] 06/23/2020 [id number] / N/A / [id number] Sterile Short Starter Awl For Melo-C Anchoring Plate Implanted:Qty: 1 Explanted:Qty: 1 on 07/29/2018 at [facility] N/A: Spine Cervical LDR SPINE [employer] 08/23/2020 [id number] / NA / [id number] Insurance UMR Advance Directives Documents on File Type Date Recorded Patient Manager Purchasing Expl anation Legal Documents 06/14/2014 SLEGAL * Full Code (Latest Code Status on File) Date Activated Date Inactivated Comments 08/02/2018 12:09 PM 08/04/2018 4:55 PM Care Teams Rice Cleaning Machine Tender Relationship Specialty Start Date End Date Conrad Borjas MD [address] [place] [address] PCP - General INTERNAL MEDICINE 07/11/18
--- OUTSIDE RECORDS SUMMARY | 2025-03-02 16:48 | XMS_ITS | Encounter Summary ---
Author Organization [facility] Address [address] [place] [address] Care Team Providers Care Manager Of Case Name Role Phone Conrad Borjas MD Primary Care Provider [phone] Encounter Details Date Type Department Care Team (Late st Contact Info) Description 06/12/2017 Abstract [facility] CONVERSION [address] [place] [address] , Generic MD Toy Social History Tobacco [...] on filedocumented in this encounter Care Teams Manager Of Case Relationship Specialty Start Date End Date Conrad Borjas MD [address] [place] [address] PCP - General INTERNAL MEDICINE 07/11/18 documented as of this encounter
--- OUTSIDE RECORDS SUMMARY | 2025-03-02 16:48 | XMS_ITS | Referral Summary ---
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 Gender Identity Not on file Sexual Orientation [...] LAB BLOOD ORDERABLES Final Resul t [facility] ([place]) [address] [facility] [place] [address] * (ABNORMAL) Differential, auto (02/15/2025 [...] Final Resul t [facility] ([place]) 1 [facility] [place] [address] * PSA screen (02/15/2025 7:07 AM CDT) [...] Final Resul t [facility] ([place]) [address] [facility] [place] [address] * CBC with auto differential (02/15/2025 7:07 [...] 7:07 AM CDT 02/15/2025 7:16 AM CDT [employer] DO LAB BLOOD ORDERABLES Final Resul t Performing Organization Address [facility] Co de Phone Number [facility] ([place]) 1 [facility] [place] [address] * (ABNORMAL) Hemoglobin A1c (02/15/2025 7:07 AM CDT) Hgb A1C 6.0(H) 4.0 - 5.6 % Estimated Average Glucose 126 mg/dL [facility] ([place]) Comment: The ADA recommends reporting an estimated Average Glucose (eAG) with all Hemoglobin A1c results using the equation derived from a study of 507 normal and diabetic adults. Minority populations were underrepresented and children were not included. (Diabetes Care 31:4034-7374, 2008). The eAG is not equivalent to a fasting glucose. Blood 02/15/2025 7:07 AM CDT 02/15/2025 7:16 AM CDT Roberto Monica DO LAB BLOOD ORDERABLES Final Resul t Performing Organization Address [facility] de Phone Number [facility] ([place]) [address] [place] [address] * Lipid panel (02/15/2025 7:07 AM CDT) [...] Final Resul t [facility] ([place]) 1 [facility] [place] [address] * Comprehensive metabolic panel (02/15/2025 7:07 AM CDT) Sodium 138 135 - 145 mmol/L Potassium, pl 3.6 3.3 - 4.9 mmol/L [facility]) Chloride 99 97 - 110 mmol/L [facility] ([place]) CO2 29 22 - 32 mmol/L [facility] ([place]) Anion gap 11 2 - 15 mmol/L [facility] ([place]) BUN 13 6 - 25 mg/dL [facility] ([place]) Creatinine 0.89 0.80 - 1.30 [...] Final Resul t [facility] ([place]) 1 [facility] [place] [address] from Last 3 Months Insurance [facility] H[facility]/PPO Address: [facility] [address] [place] [address] [employer] [facility] [employer] PLANS Address: [facility] [address] [place] [address] Care Teams Band Machine Operator Relationship Specialty Start Date End Date Roberto Anderson DO [address] [id number] PCP - General Internal Medicine 11/10/24
--- OUTSIDE RECORDS SUMMARY | 2025-03-02 16:48 | XMS_ITS | Clinical Summary ---
Author Organization [facility] Address [address] [place] [address] Care Team Providers Care Urban Sociologist Name Role Phone Roberto Anderson DO Primary Care Provider [phone] Allergies No known active allergies Medications Xarelto [...] Team Description 02/15/2025 6:55 AM CDT Lab [address] [address] from Last 3 Months Medical History Medical History Date Comments Hx Other Medical GERD; Comments: [facility] 11/07/2014 - Hypertension Hypertension Hx Other Medical seasonal allerg ies; Comments: [facility] 11/07/2014 - Hx Other Medical depression; Com ments: [facility] 11/07/2014 - Hx Other Medical occluded right carotid; Comments: [facility] 11/07/2014 - Hx Other Medical ankle surgery; Comments: [facility] 11/07/2014 - Hx Other Medical right carotid a neurysm repair; Comments: [facility] 11/07/2014 - Family History Medical History Relation [...] on file 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 [place] [address] * CBC with auto differential (02/15/2025 7:07 AM CDT) WBC 8.27 3.80 - 9.90 K/cumm Hgb 16.4 13.0 - 17.5 g/dL [facility] ([place]) Hct 48.0 38.9 - 50.3 % [facility] ([place]) Plt 283 150 - 400 K/cumm [facility] ([place]) MPV 10.8 9.1 - 12.3 fL [facility] ([place]) RBC 5.64 4.30 - 5.80 M/cumm [facility] ([place]) MCV 85.1 81.3 - 96.4 fL [facility] ([place]) MCH 29.1 27.1 - 33.3 pg [facility] ([place]) MCHC 34.2 32.3 - 35.7 g/dL [facility] ([place]) RDW CV 13.1 11.1 - 14.9 % [facility] ([place]) RDW SD 40.3 35.7 - 48.1 fL [facility] ([place]) NRBC abs 0.00 0.00 - 0.01 K/cumm [facility] ([place]) Blood 02/15/2025 7:07 AM CDT 02/15/2025 7:16 AM CDT us Robertojoan Anderson DO LAB BLOOD ORDERABLES Final Resul t [facility] ([place]) [address] [facility] [place] [address] * (ABNORMAL) Hemoglobin A1c (02/15/2025 7:07 AM CDT) Hgb A1C 6.0(H) 4.0 - 5.6 % Estimated Average Glucose 126 mg/dL [facility] ([place]) Comment: The ADA recommends reporting an estimated Average Glucose (eAG) with all Hemoglobin A1c results using the equation derived from a study of 507 normal and diabetic adults. Minority populations were underrepresented and children were not included. (Diabetes Care 31:3466-6770, 2008). The eAG is not equivalent to a fasting glucose. Blood 02/15/2025 7:07 AM CDT 02/15/2025 7:16 AM CDT us Roberto Anderson DO LAB BLOOD ORDERABLES Final Resul t [facility] ([place]) 1 [facility] Department [place] [address] * Lipid panel (02/15/2025 7:07 AM CDT) [...] DO LAB BLOOD ORDERABLES Final Resul t [facility] ([place]) 1 [facility] [place] [address] * Comprehensive metabolic panel (02/15/2025 7:07 AM [...] 107 70 - 199 mg/dL [facility] ([place]) Comment: Interpretive Data Fasting glucose >/= 126 [...] Final Resul t [facility] ([place]) 1 [facility] Department [place] [address] from Last 3 Months Insurance [facility] [employer] [facility] [employer] Address: [facility] [id number] [place] [address] Care Teams Urban Sociologist Relationship Specialty Start Date End Date Roberto Anderson DO [address] [place] [address] PCP - General Internal Medicine 11/10/24
--- OUTSIDE RECORDS SUMMARY | 2025-03-02 16:48 | XMS_ITS | Clinical Summary ---
Author Organization [facility] Address [address] [place] [address] Care Team Providers Care Station Superintendent Name Role Phone Unavailable Primary Care Provider Unavailabl e Source Comments [facility],non-owned Affiliates and Associated Physician Practices is amultiple site organization consisting of ambulatory clinics and hospital sitesin [place], [place], [place]. This disclosure is being madepursuant to the Care Everywhere program and may not contain all information available regarding this patient. Last updated 18.[facility] Decision [employer]ocket Social History Tobacco Use Types Packs/Day Years [...] season) 2024 DEPRESSION SCREENING 08/23/2024 INFLUENZA VACCINE (#1) 2025 08/03/2018 Respiratory Syncytial Virus (RSV) Vaccine Pt: or [...]
--- OUTSIDE RECORDS SUMMARY | 2025-03-02 16:48 | XMS_ITS | Encounter Summary ---
Author Organization [facility] Address [facility] [place] [address] Care Team Providers Care Rn Recovery Name Role Phone Conrad Borjas MD Primary Care Provider [phone] Encounter Details Date Type Department Care Team (Late st Contact Info) Description 07/07/2018 Abstract [facility] Neuro[facility] [place] [address], [place] [address] Tyler Ricci MD [address] [facility] [address] [place] [address] Social History Tobacco Use Types Packs/Day Years [...] on filedocumented in this encounter Care Teams Rn Recovery Relationship Specialty Start Date End Date Conrad Borjas MD [address] [place] [address] PCP - General INTERNAL MEDICINE 07/11/18 documented as of this encounter
--- OUTSIDE RECORDS SUMMARY | 2025-03-02 16:48 | XMS_ITS | Encounter Summary ---
Author Organization [facility] Address [address] [place] [address] Care Team Providers Care Costume Shop Manager Name Role Phone Conrad Borjas MD Primary Care Provider [phone] Encounter Details Date Type Department Care Team (Latest Contact Info) Description 06/28/2018 Abstract [facility] , [facility] Yeager [...] on filedocumented in this encounter Care Teams Costume Shop Manager Relationship Specialty Start Date End Date Conrad Borjas MD [address] [place] [address] PCP - General INTERNAL MEDICINE 07/11/18 documented as of this encounter
--- NOTE | 2025-03-02 17:14 | PC.NURSE ---
Left leg measures Ankle 10 inches calf 16 inches, 18 inches thigh above the knee. Right leg measures ankle 11 inches, calf 19 inches, 20 inches thigh above the knee.
[2025-03-02 17:17] VITALS: BP 128/75; PULSE 77; RESP 14; TEMP 37.2; O2SAT 93
== END 2025-03-02 17:17 | disposition short-term general hospital (02) ==
PROVIDERS: Emergency Provider Emergency Medicine; PCP Internal Medicine
DX: R22.41 Localized swelling, mass and lump, right lower limb (principal); I10 Essential (primary) hypertension; Z86.718 Personal history of other venous thrombosis and embolism; Z79.01 Long term (current) use of anticoagulants; Z86.711 Personal history of pulmonary embolism
CPT/HCPCS: 99282

== ENCOUNTER 2025-03-02 17:52 | Emergency (ER) | payer OTHER, SELFPAY ==
--- NOTE | ~2025-03-02 | XR_ITS ---
XR knee RT min 4V Ordering provider: Whitney Ace PA-C History: . right knee pain, swelling . Comparison: None. FINDINGS: BONES: No acute fracture or dislocation. JOINT SPACES: Normal. Marginal osteophytes in the patella. SOFT TISSUES: Slightly thickened patellar tendon. Clinical correlation advised. IMPRESSION: No acute osseous abnormality right knee. Mild osteoarthritis. Reviewed, dictated and finalized at location A.
--- NOTE | ~2025-03-02 | US_ITS ---
RIGHT LOWER EXTREMITY VENOUS ULTRASOUND Ordering provider: Trace Cueto MD History: . swelling, pain, concern for DVT . Comparison: None. FINDINGS: --COMMON FEMORAL: Patent and free of thrombus. Normal compressibility, phasic flow and augmentation. --PROXIMAL SUPERFICIAL FEMORAL: Patent and free of thrombus. Normal compressibility, phasic flow and augmentation. --DISTAL SUPERFICIAL FEMORAL: Patent and free of thrombus. Normal compressibility, phasic flow and au gmentation. --POPLITEAL: Patent and free of thrombus. Normal compressibility, phasic flow and augmentation. --POSTERIOR TIBIAL: Patent and free of thrombus. Normal compressibility, phasic flow and augmentation . IMPRESSION: Negative right lower extremity venous US. No deep vein thrombosis. Reviewed, dictated and finalized at location A.
--- OUTSIDE RECORDS SUMMARY | 2025-03-02 17:54 | XMS_ITS | Encounter Summary ---
Author Organization [facility] Address [address] [place] [address] Care Team Providers Care Fashion Photographer Name Role Phone Conrad Borjas MD Primary Care Provider [phone] Encounter Details Date Type Department Care Team (Late st Contact Info) Description 06/12/2017 Abstract [facility] CONVERSION [address] [place] [address] , Generic MD Toy Social History Tobacco [...] on filedocumented in this encounter Care Teams Fashion Photographer Relationship Specialty Start Date End Date Conrad Borjas MD [address] [place] [address] PCP - General INTERNAL MEDICINE 07/11/18 documented as of this encounter
--- OUTSIDE RECORDS SUMMARY | 2025-03-02 17:54 | XMS_ITS | Referral Summary ---
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 Gender Identity Not on file Sexual Orientation [...] LAB BLOOD ORDERABLES Final Resul t [facility] ([place]) 1 [facility] Department [place] [address] * (ABNORMAL) Differential, auto (02/15/2025 [...] Final Resul t [facility] ([place]) 1 [facility] Department [place] [address] * PSA screen (02/15/2025 7:07 AM CDT) [...] Final Resul t [facility] ([place]) 1 [facility] Department [place] [address] * CBC with auto differential (02/15/2025 7:07 [...] 7:07 AM CDT 02/15/2025 7:16 AM CDT [employer] DO LAB BLOOD ORDERABLES Final Resul t Performing Organization Address [facility] Co de Phone Number [facility] ([place]) 1 [facility] [place] [address] * (ABNORMAL) Hemoglobin A1c (02/15/2025 7:07 AM CDT) Hgb A1C 6.0(H) 4.0 - 5.6 % Estimated Average Glucose 126 mg/dL [facility] ([place]) Comment: The ADA recommends reporting an estimated Average Glucose (eAG) with all Hemoglobin A1c results using the equation derived from a study of 507 normal and diabetic adults. Minority populations were underrepresented and children were not included. (Diabetes Care 31:9631-2095, 2008). The eAG is not equivalent to a fasting glucose. Blood 02/15/2025 7:07 AM CDT 02/15/2025 7:16 AM CDT Roberto Monica DO LAB BLOOD ORDERABLES Final Resul t Performing Organization Address [facility] de Phone Number [facility] ([place]) [address] [place] [address] * Lipid panel (02/15/2025 7:07 AM CDT) [...] Final Resul t [facility] ([place]) 1 [facility] Department [place] [address] * Comprehensive metabolic panel (02/15/2025 7:07 AM CDT) Sodium 138 135 - 145 mmol/L Potassium, pl 3.6 3.3 - 4.9 mmol/L [facility] Chloride 99 97 - 110 mmol/L [facility] ([place]) CO2 29 22 - 32 mmol/L [facility] ([place]) Anion gap 11 2 - 15 mmol/L [facility] ([place]) BUN 13 6 - 25 mg/dL [facility]) Creatinine 0.89 0.80 [...] Final Resul t [facility] ([place]) 1 [facility] Department [place] [address] from Last 3 Months Insurance [facility] [employer] Address: [facility] [id number] [place] [address] Care Teams Envelope Stuffer Relationship Specialty Start Date End Date Roberto Anderson DO [address] [id number] PCP - General Internal Medicine 11/10/24
--- OUTSIDE RECORDS SUMMARY | 2025-03-02 17:54 | XMS_ITS | Clinical Summary ---
Author Organization [facility] Address [address] [place] [address] Care Team Providers Care Branch Assistant Name Role Phone Unavailable Primary Care Provider Unavailabl e Source Comments [facility],non-owned Affiliates and Associated Physician Practices is amultiple site organization consisting of ambulatory clinics and hospital sitesin [place], [place], [place] and [place]. This disclosure is being madepursuant to the Care Everywhere program and may not contain all information available regarding this patient. Last updated 18.[facility] Social History Tobacco Use Types Packs/Day Years [...]
--- OUTSIDE RECORDS SUMMARY | 2025-03-02 17:54 | XMS_ITS | Clinical Summary ---
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 Pulse 65 09/12/2018 9:24 AM ELECTRICAL AND RADIO AIRCRAFT MECHANIC Temperature 37.4 C (99.3 F) 08/04/2018 7:43 AM ELECTRICAL AND RADIO AIRCRAFT MECHANIC Respiratory Rate 18 08/04/2018 7:43 AM ELECTRICAL AND RADIO AIRCRAFT MECHANIC Oxygen Saturation 94% 08/04/2018 7:43 AM ELECTRICAL AND RADIO AIRCRAFT MECHANIC Inhaled Oxygen Concentration - - Weight 121.6 kg (268 lb) 09/12/2018 9:24 AM ELECTRICAL AND RADIO AIRCRAFT MECHANIC Height 180.3 cm (5' 11) 09/12/2018 9:24 AM ELECTRICAL AND RADIO AIRCRAFT MECHANIC Body Mass Index 37.38 09/12/2018 9:24 AM ELECTRICAL AND RADIO AIRCRAFT MECHANIC Plan of Treatment Health Maintenance Due Date [...] this topic Medical Devices Implanted Type Area Care Management Coordinator Device Identifier Shelf Expiration Date Model / Serial / Lot Melo-C Anchoring Plate Implanted:Qty: 1 on 07/29/2018 by Tyler Ricci MD at [facility] Plate N/A: Spine Cervical LDR [facility]INE [facility] 06/23/2022 [id number] / [id number] / [id number] Tissue Surgiflo 8ml - Sna Implanted:Qty: 2 on 07/29/2018 by Tyler Ricci MD at [facility] Tissue N/A: Cranial [employer] - [employer] 05/22/2020 [id number] / NA / [id number] Asim-I Implant Implanted:Qty: 1 on 07/29/2018 by Tyler Ricci MD at [facility] N/A: Spine Cervical LDR SPINE [employer] 01/21/2021 [id number] / N/A / [id number] Melo-C Long Anchoring Plate Implanted:Qty: 1 on 07/29/2018 by Tyler Ricci MD at [facility] N/A: Spine Cervical LDR [employer]INE [employer] 02/20/2022 [id number] / N/A / [id number] Putty Dbm Accell 2.5cc - [id number] Implanted:Qty: 1 on 07/29/2018 by Tyler Ricci MD at [facility] N/A: Spine Cervical SEASPINE 05/20/2019 [id number] / [id number] / [id number] Description: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 - [id number] Implanted:Qty: 1 on 07/29/2018 by Tyler Ricci MD at [facility] N/A: Spine Cervical ALLOSOURCE 06/05/2023 [id number] / [id number] / NA Description:No reconstitutio n needed Melo-C Implant Implanted:Qty: 1 on 07/29/2018 by Tyler Ricci MD at [facility] N/A: Spine Cervical LDR SPINE [employer] 04/23/2021 [id number] / NA / [id number] Explanted Type Area Care Management Coordinator Device Identifier Shelf Expiration Date Model / Serial / Lot Distraction Pin Explanted:Qty: 2 on 07/29/2018 by Tyler Ricci MD at [facility] Pin N/A: Spine Cervical NEW AGE MEDICAL 05/23/2023 [id number]-012-1 / NA / [id number] Pins [place] Skull Adult Disposable - Sna Explanted:Qty: 1 on 07/29/2018 by Tyler Ricci MD at [facility] N/A: Cranial [employer]HEL[employer] 06/21/2019 [id number] / NA / [id number] Sterile Long Starter Awl For Melo-Canchoring Plate Explanted:Qty: 1 on 07/29/2018 by Tyler Ricci MD at [facility] N/A: Spine Cervical LDR [employer] 06/23/2020 [id number] / N/A / [id number] Sterile Short Starter Awl For Melo-C Anchoring Plate Implanted:Qty: 1 Explanted:Qty: 1 on 07/29/2018 at [facility] N/A: Spine Cervical LDR [employer]INE [employer] 08/23/2020 [id number] / NA / [id number] Insurance UMR Advance Directives Documents on File Type Date Recorded Patient Tool Room Attendant Expl anation Legal Documents 06/14/2014 SLEGAL * Full Code (Latest Code Status on File) Date Activated Date Inactivated Comments 08/02/2018 12:09 PM 08/04/2018 4:55 PM Care Teams Line Supply Relationship Specialty Start Date End Date Conrad oBrjas MD [address] [place] [address] PCP - General INTERNAL MEDICINE 07/11/18
--- OUTSIDE RECORDS SUMMARY | 2025-03-02 17:54 | XMS_ITS | Encounter Summary ---
Author Organization [facility] Address [address] [place] [address] Care Team Providers Care Operational Review Sergeant Name Role Phone Conrad Borjas MD Primary Care Provider [phone] Encounter Details Date Type Department Care Team (Late st Contact Info) Description 01/28/2019 Abstract [facility] CONVERSION [address] [place] [address] , Generic ConversionMD Social History Tobacco Use [...] on filedocumented in this encounter Care Teams Operational Review Sergeant Relationship Specialty Start Date End Date Conrad Borjas MD [address] [place] [address] PCP - General INTERNAL MEDICINE 07/11/18 documented as of this encounter
--- OUTSIDE RECORDS SUMMARY | 2025-03-02 17:54 | XMS_ITS | Encounter Summary ---
Author Organization [facility] Address [facility] [place] [address] Care Team Providers Care Medical Social Worker Name Role Phone Conrad Borjas MD Primary Care Provider [phone] Encounter Details Date Type Department Care Team (Late st Contact Info) Description 07/07/2018 Abstract [facility] Neuroscience [address], [place] [address] Tyler Ricci MD [address] [facility] [address] [place] [address] Social History Tobacco Use Types Packs/Day Years [...] filedocumented in this encounter Care Teams Medical Social Worker Relationship Specialty Start Date End Date Conrad Borjas MD [address] [place] [address] PCP - General INTERNAL MEDICINE 07/11/18 documented as of this encounter
--- OUTSIDE RECORDS SUMMARY | 2025-03-02 17:54 | XMS_ITS | Encounter Summary ---
Author Organization [facility] Address [address] [place] [address] Care Team Providers Care Register In Chancery Name Role Phone Conrad Borjas MD Primary Care Provider [phone] Encounter Details Date Type Department Care Team (Latest Contact Info) Description 06/28/2018 Abstract [facility] , Levy Yeager MD Social [...] on filedocumented in this encounter Care Teams Register In Chancery Relationship Specialty Start Date End Date Conrad Borjas MD [address] [place] [address] PCP - General INTERNAL MEDICINE 07/11/18 documented as of this encounter
--- OUTSIDE RECORDS SUMMARY | 2025-03-02 17:54 | XMS_ITS | Clinical Summary ---
Author Organization [facility] Address [address] [place] [address] Care Team Providers Care Professor Of Biological Sciences Name Role Phone Roberto Anderson DO Primary Care Provider [phone] Allergies No known active allergies Medications Xarelto [...] Team Description 02/15/2025 6:55 AM CDT Lab [address] [address] from Last 3 Months Medical History Medical History Date Comments Hx Other Medical GERD; Comments: [facility] 11/07/2014 - Hypertension Hypertension Hx Other Medical seasonal allerg ies; Comments: [facility] 11/07/2014 - Hx Other Medical depression; Com ments: [facility] 11/07/2014 - Hx Other Medical occluded right carotid; Comments: [facility] 11/07/2014 - Hx Other Medical ankle surgery; Comments: [facility] 11/07/2014 - Hx Other Medical right carotid a neurysm repair; Comments: [facility] 11/07/2014 - Family History Medical History Relation [...] on file Legal Sex Male 3:35 AM [employer] Gender Identity Not on file Sexual Orientation [...] BLOOD ORDERABLES Final Resul t [facility] ([place] [place] [address] * (ABNORMAL) Differential, auto (02/15/2025 7:07 AM [...] Final Resul t [facility] ([place]) [address] [facility] [place] [address] * PSA screen (02/15/2025 7:07 AM CDT) [...] Final Resul t [facility] ([place]) [facility] [place] [address] * CBC with auto differential (02/15/2025 7:07 AM CDT) WBC 8.27 3.80 - 9.90 K/cumm Hgb 16.4 13.0 - 17.5 g/dL [facility] ([place]) Hct 48.0 38.9 - 50.3 % [facility] Plt 283 150 - 400 K/cumm [facility] MPV 10.8 9.1 - 12.3 fL [facility] ([place] RBC 5.64 4.30 - 5.80 M/cumm [facility] ([place]) MCV 85.1 81.3 - 96.4 fL [facility] ([place]) MCH 29.1 27.1 - 33.3 pg [facility] ([place]) MCHC 34.2 32.3 - 35.7 g/dL [facility] ([place]) RDW CV 13.1 11.1 - 14.9 % [facility] ([place]) RDW SD 40.3 35.7 - 48.1 fL [facility] ([place] NRBC abs 0.00 0.00 - 0.01 K/cumm [facility] ([place]) Blood 02/15/2025 7:07 AM CDT 02/15/2025 7:16 AM CDT us Robertojoan Anderson DO LAB BLOOD ORDERABLES Final Resul t [facility] ([place] [address] [facility] [place] [address] * (ABNORMAL) Hemoglobin A1c (02/15/2025 7:07 AM CDT) Hgb A1C 6.0(H) 4.0 - 5.6 % Estimated Average Glucose 126 mg/dL [facility] ([place]) Comment: The ADA recommends reporting an estimated Average Glucose (eAG) with all Hemoglobin A1c results using the equation derived from a study of 507 normal and diabetic adults. Minority populations were underrepresented and children were not included. (Diabetes Care 31:7072-7944, 2008). The eAG is not equivalent to a fasting glucose. Blood 02/15/2025 7:07 AM CDT 02/15/2025 7:16 AM CDT us Roberto Anderson DO LAB BLOOD ORDERABLES Final Resul t [facility] [address] [facility] [place] [address] * Lipid panel (02/15/2025 7:07 AM CDT) [...] DO LAB BLOOD ORDERABLES Final Resul t [facility] ([place]) [address] [facility] [place] [address] * Comprehensive metabolic panel (02/15/2025 7:07 AM [...] Final Resul t [facility] ([place]) [address] [facility] [place] [address] from Last 3 Months Insurance [facility] [employer] [employer] Address: [facility] [address] [place] [address] Care Teams Professor Of Biological Sciences Relationship Specialty Start Date End Date Roberto Anderson DO [address] [place] [address] PCP - General Internal Medicine 11/10/24
[2025-03-02 18:00] VITALS: BP 143/76; PULSE 80; RESP 16; TEMP 36.4; O2SAT 92
--- NOTE | 2025-03-02 19:44 | ED.EXTPRO ---
HPI - Extremity Problem General Chief complaint: Recheck/Abnormal Lab/Rx <Whitney Ace PA-C - Last Filed: 03/02/25 23:49> Stated complaint: sent from [place] r/o DVT <Whitney Ace PA-C - Last Filed: 03/02/25 23:49> Time Seen by Provider: 03/02/25 19:44 <Whitney Ace PA-C - Last Filed: 03/02/25 23:49> Focused HPI: This is a 64 year old male that presents to the ER for right knee pain. Ongoing since yesterday. No known injuries. Reports swelling about the knee and lower leg. He was seen at [facility] and sent here for further evaluation to r/o DVT. He takes Rivaroxaban for history of PE. He has not missed any doses. Denies fever, erythema. GENERAL: Well-appearing, well-nourished, and in no acute distress. HEAD: Normocephalic, atraumatic. CHEST: Clear to auscultation. ?No respiratory distress. HEART: Regular rate and rhythm.? NEURO: ?Alert and oriented x3. Patient screened in triage and initial orders placed.? ?Additional care and disposition to be based upon?diagnostic testing and treatment. <Whitney Ace PA-C - Last Filed: 03/02/25 23:49> Focused HPI: This is a 64 year old male that presents to the ER for right knee pain. Ongoing since yesterday. No known injuries. Reports swelling about the knee and lower leg. He was seen at [facility] and sent here for further evaluation to r/o DVT. He takes Rivaroxaban for history of PE. He has not missed any doses. Denies fever, erythema. GENERAL: Well-appearing, well-nourished, and in no acute distress. HEAD: Normocephalic, atraumatic. CHEST: Clear to auscultation. ?No respiratory distress. HEART: Regular rate and rhythm.? NEURO: ?Alert and oriented x3. Patient screened in triage and initial orders placed.? ?Additional care and disposition to be based upon?diagnostic testing and treatment. Agree with triage assessment. <Skyler Hall MD - Last Filed: 03/02/25 21:31> Related Data Home medications: Home Medications ?Medication ?Instructions ?Recorded ?Confirmed ?Last Taken ?Type omeprazole magnesium 20 mg 20 mg PO DAILY 07/27/19 03/01/25 08/23/20 History tablet,delayed release (Prilosec OTC) <Whitney Ace PA-C - Last Filed: 03/02/25 23:49> Allergies/Adverse reactions: Allergies Allergy/AdvReac Type Severity Reaction Status Date / Time rabeprazole Allergy Mild rash Verified 03/02/25 16:14 <Whitney Ace PA-C - Last Filed: 03/02/25 23:49> Review of Systems Review of Systems: All systems are reviewed and are negative unless stated otherwise in the HPI. 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 She is a durable power ip attorney for healthcare. The patient is a full code. The patient has 4 sons and 1 daughter. 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 The patient is a lifelong nonsmoker and occasionally will have an alcoholic drink but otherwise does not drink on a daily basis. No marijuana or illicit drug use. Smoking status: Never smoker Second hand tobacco smoke exposure: No Alcohol intake: never Do You Feel Safe in your Home?: Yes Lack of Food: Never True Current Housing: I Have Housing Concerned About Future Housing: No Difficulty Paying Gas/Electric Bills: No Difficulty Paying for Meds: No Currently Unemployed: No Education: Trade/Vocational Certificate Difficulty w/ Childcare or Family Care: No Gender identity (if verbalized by the patient): Male Spiritual care concerns: No <Whitney Ace PA-C - Last Filed: 03/02/25 23:49> Exam Narrative: General: Alert, awake, afebrile, in no acute distress. HEENT: PERRL, no rhinorrhea, no post nasal drip, oropharynx clear. Neck: Trachea midline, no JVD, no lymphadenopathy. Cardiovascular: Regular rate and rhythm, no murmurs, rubs or gallops, no peripheral edema. Respiratory: Clear to auscultation bilaterally, no tachypnea, no wheezing, no rhonchi, no rubs, no respiratory distress. Abdomen: Soft, nontender, nondistended, no rebound, no guarding, no peritoneal signs. Musculoskeletal: Right lower extremity edema extending from the right knee down to the ankle joint, mild erythema, tenderness to palpation behind the right knee joint otherwise no evidence of knee effusion, intact full range of motion at the right knee joint. Skin: No rashes or petechia, no signs of infection. Psychiatric: Alert and oriented, normal behavior and judgment for situation. Neurological: Alert and oriented to person, place, and time. Follows all commands. No focal deficits, speech is clear and fluent. <Sykler Hall MD - Last Filed: 03/02/25 21:31> Course Vital Signs Vital signs: Vital Signs Temperature 97.6 F 03/02/25 18:00 Pulse Rate 80 03/02/25 18:00 Respiratory Rate 16 03/02/25 18:00 Blood Pressure 143/76 H 03/02/25 18:00 Pulse Oximetry 92 03/02/25 18:00 Oxygen Delivery Room Air 03/02/25 18:00 Temperature 98.1 F 03/02/25 21:45 Pulse Rate 61 03/02/25 21:45 Respiratory Rate 18 03/02/25 21:45 Blood Pressure 133/85 03/02/25 21:45 Pulse Oximetry 95 03/02/25 21:45 Oxygen Delivery Room Air 03/02/25 18:00 <Whitney Ace PA-C - Last Filed: 03/02/25 23:49> Vital Signs Temperature 97.6 F 03/02/25 18:00 Pulse Rate 80 03/02/25 18:00 Respiratory Rate 16 03/02/25 18:00 Blood Pressure 143/76 H 03/02/25 18:00 Pulse Oximetry 92 03/02/25 18:00 Oxygen Delivery Room Air 03/02/25 18:00 Temperature 98.1 F 03/02/25 21:45 Pulse Rate 61 03/02/25 21:45 Respiratory Rate 18 03/02/25 21:45 Blood Pressure 133/85 03/02/25 21:45 Pulse Oximetry 95 03/02/25 21:45 Oxygen Delivery Room Air 03/02/25 18:00 <Skyler Hall MD - Last Filed: 03/02/25 21:31> MDM - Extremity (Nontraumatic) MDM Narrative Medical decision making narrative: The patient was evaluated by myself in the emergency department. History is obtained from patient who is an independent historian and physical exam was performed. External medical records were reviewed at this time. IV was established and pertinent tests were ordered. Laboratory results obtained revealing leukocytosis of 16.3 otherwise unremarkable. Imaging studies obtained included/image venous duplex and a right knee x-ray which was independently interpreted by me revealing no acute process, which is pending final radiology interpretation. Patient was informed that he will be started on antibiotics him for cellulitis, however, his pain persist he will need an MRI of his right knee joint to evaluate for ligamentous or meniscal injury. Patient was administered his 1st dose of cephalexin in the emergency department along 60 mg of oral Tylenol. Differential diagnosis considerations include internal derangement of the right knee movement this versus meniscal injury, cellulitis EP Comorbidities impacting this visit include history of PE currently on Xarelto. I have evaluated and discussed social determinants of health with the patient that could potentially impact subsequent diagnosis and treatment plans. On repeat assessment of the patient, reevaluation revealed that the patient is doing well and is in no acute distress. Patient symptoms have improved since he arrived to our emergency department. Repeat vital signs were all reviewed and noted to be stable. Differential diagnosis and treatment plan were discussed with the patient at bedside. Patient agrees with discussion and after shared medical decision making agrees with discharge. All questions were answered to the patient's satisfaction. Patient will follow up with his PCP and Orthopedics in 3-5 days. Script for cephalexin was sent to patient's pharmacy to take as prescribed. Patient was provided with strict return precautions and instructed to return to the emergency department if any new or worsening symptoms develop. The patient was discharged in stable condition. <Skyler Hall MD - Last Filed: 03/02/25 21:31> Lab Data Result diagrams: 03/02/25 20:14 03/02/25 20:14 <Whitney Ace PA-C - Last Filed: 03/02/25 23:49> Labs: Lab Results 03/02/25 Range/Units 20:14 WBC 16.3 H (4.5-10.0) K/mm3 RBC 5.09 (4.6-6.20) M/mm3 Hgb 14.5 (14.0-18.0) g/dL Hct 44.0 (42.0-52.0) % MCV 86.4 (80-100) fl MCH 28.5 (26-34) pg MCHC 33.0 (32-36) g/dl RDW 13.6 (11.5-14.5) % Plt Count 233 (150-375) k/mm3 MPV 11.3 H (7.4-10.4) fl Immature Gran % (Auto) 0.4 (0-0.5) % Neut % (Auto) 71.1 (45.5-73.1) % Lymph % (Auto) 22.2 (18.3-44.2) % [place] % (Auto) 6.1 (2.6-8.5) % Eos % (Auto) 0.0 (0-4.4) % Baso % (Auto) 0.2 (0.2-1.2) % Lymph # (Auto) 3.62 H (0.9-3.2) K/mm3 [place] # (Auto) 1.0 H (0.1-0.6) K/mm3 Eos # (Auto) 0.0 (0-0.3) K/mm3 Baso # (Auto) 0.0 (0.0-0.1) K/mm3 Abs Immat Gran (auto) 0.06 H (0.00-0.031) K/mm3 Absolute Neuts (auto) 11.6 H (1.3-6.7) K/mm3 Absolute Nucleated RBC 0.000 (0.0-0.012) K/mm3 Nucleated RBC % 0.0 (0.0-0.2) % ESR 5 (0-20) mm/hr PT 25.2 H (11.1-14.7) Seconds INR 2.4 APTT 35.3 (22.3-36.8) Seconds Sodium 141 (137-145) mmol/L Potassium 3.7 (3.4-5.0) mmol/L Chloride 104 (98-107) mmol/L Carbon Dioxide 28 (22-30) mmol/L Anion Gap 9 (4-12) mmol/L BUN 29 H D (9-20) mg/dL Creatinine 0.96 (0.7-1.3) mg/dL Estim Creat Clear Calc 89 ml/min Estimated GFR > 60 (59 - ) Glucose 110 (65-110) mg/dL Calcium 9.9 (8.4-10.2) mg/dL Total Bilirubin 0.7 (0.2-1.3) mg/dL AST 56 (17-59) U/L ALT 35 (6-50) U/L Alkaline Phosphatase 44 (38-126) U/L C-Reactive Protein < 0.5 (<1.0) mg/dL Total Protein 8.1 (6.3-8.2) g/dL Albumin 4.7 (3.5-5.1) g/dL <Whitney Ace PA-C - Last Filed: 03/02/25 23:49> Lab Results 03/02/25 Range/Units 20:14 WBC 16.3 H (4.5-10.0) K/mm3 RBC 5.09 (4.6-6.20) M/mm3 Hgb 14.5 (14.0-18.0) g/dL Hct 44.0 (42.0-52.0) % MCV 86.4 (80-100) fl MCH 28.5 (26-34) pg MCHC 33.0 (32-36) g/dl RDW 13.6 (11.5-14.5) % Plt Count 233 (150-375) k/mm3 MPV 11.3 H (7.4-10.4) fl Immature Gran % (Auto) 0.4 (0-0.5) % Neut % (Auto) 71.1 (45.5-73.1) % Lymph % (Auto) 22.2 (18.3-44.2) % [place] % (Auto) 6.1 (2.6-8.5) % Eos % (Auto) 0.0 (0-4.4) % Baso % (Auto) 0.2 (0.2-1.2) % Lymph # (Auto) 3.62 H (0.9-3.2) K/mm3 [place] # (Auto) 1.0 H (0.1-0.6) K/mm3 Eos # (Auto) 0.0 (0-0.3) K/mm3 Baso # (Auto) 0.0 (0.0-0.1) K/mm3 Abs Immat Gran (auto) 0.06 H (0.00-0.031) K/mm3 Absolute Neuts (auto) 11.6 H (1.3-6.7) K/mm3 Absolute Nucleated RBC 0.000 (0.0-0.012) K/mm3 Nucleated RBC % 0.0 (0.0-0.2) % ESR 5 (0-20) mm/hr PT 25.2 H (11.1-14.7) Seconds INR 2.4 APTT 35.3 (22.3-36.8) Seconds Sodium 141 (137-145) mmol/L Potassium 3.7 (3.4-5.0) mmol/L Chloride 104 (98-107) mmol/L Carbon Dioxide 28 (22-30) mmol/L Anion Gap 9 (4-12) mmol/L BUN 29 H D (9-20) mg/dL Creatinine 0.96 (0.7-1.3) mg/dL Estim Creat Clear Calc 89 ml/min Estimated GFR > 60 (59 - ) Glucose 110 (65-110) mg/dL Calcium 9.9 (8.4-10.2) mg/dL Total Bilirubin 0.7 (0.2-1.3) mg/dL AST 56 (17-59) U/L ALT 35 (6-50) U/L Alkaline Phosphatase 44 (38-126) U/L C-Reactive Protein < 0.5 (<1.0) mg/dL Total Protein 8.1 (6.3-8.2) g/dL Albumin 4.7 (3.5-5.1) g/dL <Skyler Hall MD - Last Filed: 03/02/25 21:31> Imaging Data Radiologist's impression: ITS Impressions Venous Doppler Study 03/02/25 19:11 IMPRESSION: Negative right lower extremity venous US. No deep vein thrombosis. Knee X-Ray 03/02/25 20:54 IMPRESSION: No acute osseous abnormality right knee. Mild osteoarthritis. <Whitney Ace PA-C - Last Filed: 03/02/25 23:49> Discharge Plan Discharge Clinical Impression: Right leg swelling <Whitney Ace PA-C - Last Filed: 03/02/25 23:49> Patient Disposition: Home <Whitney Ace PA-C - Last Filed: 03/02/25 23:49> Condition: Improved <Whitney Ace PA-C - Last Filed: 03/02/25 23:49> Instructions: Antibiotic Form, Leg Edema (ED) <Whitney Ace PA-C - Last Filed: 03/02/25 23:49> Additional Instructions: Please follow-up with your orthopedic surgeon you in the next 3-5 days regarding your knee pain. Keep your right lower extremity elevated and wear compression stockings as this may help with the edema. Return to the ED if any new or worsening symptoms develop. Take the prescribed antibiotic as instructed to cover for cellulitis. <Whitney Ace PA-C - Last Filed: 03/02/25 23:49> Patient Language: Syrian <DANIELLE Hernandez Last Filed: 03/02/25 23:49> Prescriptions: New cephalexin 500 mg capsule 500 mg PO Q12H 7 Days Qty: 14 0RF No Action Prilosec OTC 20 mg tablet,delayed release (DR/EC) 20 mg PO DAILY prednisone 10 mg tablet 10 mg PO BID 10 Days Qty: 20 0RF carvedilol 25 mg tablet See Rx Instructions .ROUTE .COMPLEX Qty: 180 2RF Dose Instruction: TAKE ONE TABLET BY MOUTH EVERY 12 HOURS Rx Instructions: TAKE ONE TABLET BY MOUTH EVERY 12 HOURS Xarelto 20 mg tablet 20 mg PO DAILY Qty: 90 2RF Rx Instructions: must administer with evening meal hydrochlorothiazide 50 mg tablet 50 mg PO DAILY Qty: 90 2RF gabapentin 600 mg tablet See Rx Instructions .ROUTE .COMPLEX Qty: 90 2RF Dose Instruction: TAKE ONE TABLET BY MOUTH THREE TIMES A DAY Rx Instructions: TAKE ONE TABLET BY MOUTH THREE TIMES A DAY <Whitney Ace PA-C - Last Filed: 03/02/25 23:49> Follow-up/Referrals: Roberto Anderson, [Primary Care Provider] - 3 Days <Whitney Ace PA-C - Last Filed: 03/02/25 23:49> Time of Disposition: 21:25 <Whitney Ace PA-C - Last Filed: 03/02/25 23:49> 21:25 <Skyler Hall MD - Last Filed: 03/02/25 21:31>
--- OUTSIDE RECORDS SUMMARY | 2025-03-02 19:53 | XMS_ITS | Encounter Summary ---
Author Organization [facility] Address [address] [place] [address] Care Team Providers Care Reversal Print Inspector Name Role Phone Conrad Borjas MD Primary Care Provider [phone] Encounter Details Date Type Department Care Team (Late st Contact Info) Description 01/28/2019 Abstract [facility] CON[facility] [address] [place] [address] , Generic ConversionMD Social History Tobacco Use [...] on filedocumented in this encounter Care Teams Reversal Print Inspector Relationship Specialty Start Date End Date Conrad Borjas MD [address] [place] [address] PCP - General INTERNAL MEDICINE 07/11/18 documented as of this encounter
--- OUTSIDE RECORDS SUMMARY | 2025-03-02 19:53 | XMS_ITS | Encounter Summary ---
Author Organization [facility] Address [facility] [place] [address] Care Team Providers Care Banking Pin Adjuster Name Role Phone Conrad Borjas MD Primary Care Provider [phone] Encounter Details Date Type Department Care Team (Late st Contact Info) Description 07/07/2018 Abstract [facility] Neuroscience [address] [address] Tyler Ricci MD [address] [facility] [address] [place] [address] Social History Tobacco Use Types Packs/Day Years [...] on filedocumented in this encounter Care Teams Banking Pin Adjuster Relationship Specialty Start Date End Date Conrad Borjas MD [address] [place] [address] PCP - General INTERNAL MEDICINE 07/11/18 documented as of this encounter
--- OUTSIDE RECORDS SUMMARY | 2025-03-02 19:53 | XMS_ITS | Clinical Summary ---
Author Organization [facility] Address [address] [place] [address] Care Team Providers Care Shell Assembler Name Role Phone Unavailable Primary Care Provider Unavailabl e Source Comments [facility],non-owned Affiliates and Associated Physician Practices is amultiple site organization consisting of ambulatory clinics and hospital sitesin [place], [place], [place] and [place]. This disclosure is being madepursuant to the Care Everywhere program and may not contain all information available regarding this patient. Last updated 18.[facility] Sonian Social History Tobacco Use Types Packs/Day Years [...]
--- OUTSIDE RECORDS SUMMARY | 2025-03-02 19:53 | XMS_ITS | Clinical Summary ---
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 Temperature 37.4 C (99.3 F) 08/04/2018 7:43 AM ASSISTANT PROFESSOR OF MUSIC Respiratory Rate 18 08/04/2018 7:43 AM ASSISTANT PROFESSOR OF MUSIC Oxygen Saturation 94% 08/04/2018 7:43 AM ASSISTANT PROFESSOR OF MUSIC Inhaled Oxygen Concentration - - Weight 121.6 kg (268 lb) 09/12/2018 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 OF 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 Height 180.3 cm (5' 11) 09/12/2018 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 PROFESSOR OF MUSIC Body Mass Index 37.38 09/12/2018 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 PROFESSOR OF 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 Plan of Treatment Health Maintenance Due Date [...] this topic Medical Devices Implanted Type Area Watch Crystal Edge Grinder Device Identifier Shelf Expiration Date Model / Serial / Lot Melo-C Anchoring Plate Implanted:Qty: 1 on 07/29/2018 by Tyler Ricci MD at [facility] Plate N/A: Spine Cervical LDR SPINE [facility] 06/23/2022 [id number] / NA / [id number] Tissue Surgiflo 8ml - Sna Implanted:Qty: 2 on 07/29/2018 by Tyler Ricci MD at [facility] Tissue N/A: Cranial [employer] 05/22/2020 [id number] / NA / [id number] Asim-I Implant Implanted:Qty: 1 on 07/29/2018 by Tyler Ricci MD at [facility] N/A: Spine Cervical LDR [employer]INE [employer] 01/21/2021 [id number] / N/A / [id number] Melo-C Long Anchoring Plate Implanted:Qty: 1 on 07/29/2018 by Tyler Ricci MD at [facility] N/A: Spine Cervical LDR [employer] 02/20/2022 [id number] / N/A / [id number] Putty Dbm Accell 2.5cc - [id number] Implanted:Qty: 1 on 07/29/2018 by Tyler Ricci MD at [facility] N/A: Spine Cervical [employer] 05/20/2019 [id number] / [id number] / [id number] Description: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 - [id number] Implanted:Qty: 1 on 07/29/2018 by Tyler Ricci MD at [facility] N/A: Spine Cervical [employer] 06/05/2023 [id number] / [id number] / NA Description:No reconstitutio n needed Melo-C Implant Implanted:Qty: 1 on 07/29/2018 by Tyler Ricci MD at [facility] N/A: Spine Cervical LDR [employer]INE [employer] 04/23/2021 [id number] / NA / [id number] Explanted Type Area Watch Crystal Edge Grinder Device Identifier Shelf Expiration Date Model / Serial / Lot Distraction Pin Explanted:Qty: 2 on 07/29/2018 by Tyler Ricci MD at [facility] Pin N/A: Spine Cervical [employer] 05/23/2023 [id number] / NA / [id number] Pins [place]rose Skull Adult Disposable - Sna Explanted:Qty: 1 on 07/29/2018 by Tyler Ricci MD at [facility] N/A: Cranial [employer] 06/21/2019 [id number] / NA / [id number] Sterile Long Starter Awl For Melo-Canchoring Plate Explanted:Qty: 1 on 07/29/2018 by Tyler Ricci MD at [facility] N/A: Spine Cervical LDR [employer] 06/23/2020 [id number] / N/A / [id number] Sterile Short Starter Awl For Melo-C Anchoring Plate Implanted:Qty: 1 Explanted:Qty: 1 on 07/29/2018 at [facility] N/A: Spine Cervical LDR [employer] 08/23/2020 [id number] / NA / [id number] Insurance U[employer] Advance Directives Documents on File Type Date Recorded 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
--- OUTSIDE RECORDS SUMMARY | 2025-03-02 19:53 | XMS_ITS | Clinical Summary ---
Author Organization [facility] Address [address] [place] [address] Care Team Providers Care Post Tensioning Ironworker Helper Name Role Phone Roberto Anderson DO Primary Care Provider [phone] Allergies No known active allergies Medications Xarelto [...] Description 02/15/2025 6:55 AM CDT Lab [address] [address] from Last 3 Months Medical History Medical History Date Comments Hx Other Medical GERD; Comments: [facility] 11/07/2014 - Hypertension Hypertension Hx Other Medical seasonal allerg ies; Comments: [facility] 11/07/2014 - Hx Other Medical depression; Com ments: [facility] 11/07/2014 - Hx Other Medical occluded right carotid; Comments: [facility] 11/07/2014 - Hx Other Medical ankle surgery; Comments: [facility] 11/07/2014 - Hx Other Medical right carotid a neurysm repair; Comments: [facility] 11/07/2014 - Family History Medical [...] on file Legal 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 Gender Identity Not on file Sexual Orientation [...] BLOOD ORDERABLES Final Resul t [facility] ([place] 1 [facility] Department [place] [address] * (ABNORMAL) Differential, auto (02/15/2025 7:07 AM [...] Resul t [facility] ([place]) 1 [facility] [place] [address] * PSA screen (02/15/2025 7:07 AM CDT) [...] Resul t [facility] ([place] [place] [address] * CBC with auto differential (02/15/2025 7:07 AM CDT) WBC 8.27 3.80 - 9.90 K/cumm Hgb 16.4 13.0 - 17.5 g/dL [facility] ([place]) Hct 48.0 38.9 - 50.3 % [facility] Plt 283 150 - 400 K/cumm [facility] MPV 10.8 9.1 - 12.3 fL [facility] RBC 5.64 4.30 - 5.80 M/cumm [facility] MCV 85.1 81.3 - 96.4 fL [facility] MCH 29.1 27.1 - 33.3 pg [facility] ([place]) MCHC 34.2 32.3 - 35.7 g/dL [facility]) RDW CV 13.1 11.1 - 14.9 % [facility] RDW SD 40.3 35.7 - 48.1 fL [facility] NRBC abs 0.00 0.00 - 0.01 K/cumm [facility]) Blood 02/15/2025 7:07 AM CDT 02/15/2025 7:16 AM CDT us Robertojoan Anderson DO LAB BLOOD ORDERABLES Final Resul t [facility] ([place] [employer] [place] [address] * (ABNORMAL) Hemoglobin A1c (02/15/2025 7:07 AM CDT) Hgb A1C 6.0(H) 4.0 - 5.6 % Estimated Average Glucose 126 mg/dL [facility]) Comment: The ADA recommends reporting an estimated Average Glucose (eAG) with all Hemoglobin A1c results using the equation derived from a study of 507 normal and diabetic adults. Minority populations were underrepresented and children were not included. (Diabetes Care 31:4525-8186, 2008). The eAG is not equivalent to a fasting glucose. Blood 02/15/2025 7:07 AM CDT 02/15/2025 7:16 AM CDT us Roberto Anderson DO LAB BLOOD ORDERABLES Final Resul t [facility] ([place] 1 [facility] Department [place] [address] * Lipid panel (02/15/2025 7:07 AM CDT) [...] DO LAB BLOOD ORDERABLES Final Resul t [facility] ([place]) 1 [facility] [place] [address] * Comprehensive metabolic panel (02/15/2025 7:07 AM [...] 56 40 - 130 Units/L [facility] ALT 18 7 - 55 Units/L [facility] AST 33 10 - 50 Units/L [facility]) Blood 02/15/2025 7:07 AM CDT 02/15/2025 7:16 AM CDT us Roberto Anderson DO LAB BLOOD ORDERABLES Final Resul t [facility] ([place]) 1 [facility] [place] [address] from Last 3 Months Insurance [facility] H[facility]/PPO Address: [facility] [address] [place] [address] [facility] [employer] Address: [facility] [id number] [place] [address] Care Teams Post Tensioning Ironworker Helper Relationship Specialty Start Date End Date Roberto Anderson DO [address] [place] [address] PCP - General Internal Medicine 11/10/24
--- OUTSIDE RECORDS SUMMARY | 2025-03-02 19:53 | XMS_ITS | Encounter Summary ---
Author Organization [facility] Address [address] [place] [address] Care Team Providers Care Cutting And Splicing Supervisor Name Role Phone Conrad Borjas MD Primary Care Provider [phone] Encounter Details Date Type Department Care Team (Latest Contact Info) Description 06/28/2018 Abstract [facility] , Levy Yeager MD Social [...] on filedocumented in this encounter Care Teams Cutting And Splicing Supervisor Relationship Specialty Start Date End Date Conrad Borjas MD [address] [place] [address] PCP - General INTERNAL MEDICINE 07/11/18 documented as of this encounter
--- OUTSIDE RECORDS SUMMARY | 2025-03-02 19:53 | XMS_ITS | Encounter Summary ---
Author Organization [facility] Address [address] [place] [address] Care Team Providers Care Head Paper Tester Name Role Phone Conrad oBrjas MD Primary Care Provider [phone] Encounter Details Date Type Department Care Team (Late st Contact Info) Description 06/12/2017 Abstract [facility] CONVERSION [address] [place] [address] , Generic MD Toy Social History Tobacco [...] on filedocumented in this encounter Care Teams Head Paper Tester Relationship Specialty Start Date End Date Conrad Borjas MD [address] [place] [address] PCP - General INTERNAL MEDICINE 07/11/18 documented as of this encounter
--- OUTSIDE RECORDS SUMMARY | 2025-03-02 19:53 | XMS_ITS | Referral Summary ---
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 Gender Identity Not on file Sexual Orientation [...] LAB BLOOD ORDERABLES Final Resul t [facility] COUNTS INCLUDE [address] [facility] AT [facility] 1 [facility] [place] [address] * (ABNORMAL) Differential, auto (02/15/2025 [...] Final Resul t [facility] ([place]) 1 [facility] [place] [address] * PSA screen (02/15/2025 7:07 AM CDT) [...] Final Resul t [facility] ([place]) 1 [facility] [place] [address] * CBC with auto differential (02/15/2025 7:07 [...] 7:07 AM CDT 02/15/2025 7:16 AM CDT [employer] DO LAB BLOOD ORDERABLES Final Resul t Performing Organization Address [facility] Co de Phone Number [facility] ([place]) 1 [facility] [place] [address] * (ABNORMAL) Hemoglobin A1c (02/15/2025 7:07 AM CDT) Hgb A1C 6.0(H) 4.0 - 5.6 % Estimated Average Glucose 126 mg/dL [facility] ([place]) Comment: The ADA recommends reporting an estimated Average Glucose (eAG) with all Hemoglobin A1c results using the equation derived from a study of 507 normal and diabetic adults. Minority populations were underrepresented and children were not included. (Diabetes Care 31:0861-2470, 2008). The eAG is not equivalent to a fasting glucose. Blood 02/15/2025 7:07 AM CDT 02/15/2025 7:16 AM CDT Roberto Monica DO LAB BLOOD ORDERABLES Final Resul t Performing Organization Address [facility] de Phone Number [facility] ([place]) [address] [place] [address] * Lipid panel (02/15/2025 7:07 AM CDT) [...] Final Resul t [facility] ([place]) 1 [facility] [place] [address] * Comprehensive metabolic panel (02/15/2025 7:07 AM CDT) Sodium 138 135 - 145 mmol/L Potassium, pl 3.6 3.3 - 4.9 mmol/L [facility] Chloride 99 97 - 110 mmol/L [facility] CO2 29 22 - 32 mmol/L [facility]) Anion gap 11 2 - 15 mmol/L [facility] BUN 13 6 - 25 mg/dL [facility]) Creatinine 0.89 0.80 [...] Final Resul t [facility] ([place]) 1 [facility] [place] [address] from Last 3 Months Insurance [facility] [employer] PLANS Address[facility] [id number] [place] [address] Care Teams Strike On Machine Operator Relationship Specialty Start Date End Date Roberto Anderson DO [address] [id number] PCP - General Internal Medicine 11/10/24
[2025-03-02 20:23] LABS: Hematocrit 44.0 % (42.0-52.0); Hemoglobin 14.5 g/dL (14.0-18.0); Immature Granulocyte Percent A 0.4 % (0-0.5); Lymphocytes Absolute Auto 3.62 K/mm3 (0.9-3.2); Mean Corpuscular HGB Conc 33.0 g/dl (32-36); Mean Corpuscular Hemoglobin 28.5 pg (26-34); Mean Corpuscular Volume 86.4 fl (80-100); Nucleated Red Blood Cells Absolute Auto 0.000 K/mm3 (0.0-0.012); Nucleated Red Blood Cells Perc 0.0 % (0.0-0.2); Platelet Count Result 233 k/mm3 (150-375); Red Blood Count 5.09 M/mm3 (4.6-6.20); White Blood Count 16.3 K/mm3 (4.5-10.0)
--- NOTE | 2025-03-02 20:28 | PC.NURSE ---
64yo M c/o pain and swelling to R calf since yesterday, worsening in nature. 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 Takes xarelto, compliant. Of note, patient states he took an extra dose of xarelto today. A&Ox4, speech clear.RR even and unlabored. Ambulatory w crutches.
[2025-03-02 20:34] LABS: INR 2.4; Partial Thromboplastin Time 35.3 Seconds (22.3-36.8); Prothrombin Time 25.2 Seconds (11.1-14.7)
[2025-03-02 20:36] VITALS: BP 126/91; PULSE 68; RESP 18; O2SAT 95
[2025-03-02 20:43] LABS: Alanine Aminotransferase 35 U/L (6-50); Albumin Level 4.7 g/dL (3.5-5.1); Alkaline Phosphatase 44 U/L (38-126); Anion Gap 9 mmol/L (4-12); Aspartate Amino Transferase 56 U/L (17-59); Bilirubin,Total 0.7 mg/dL (0.2-1.3); Blood Urea Nitrogen 29 mg/dL (9-20); CRP < 0.5 mg/dL (<1.0); Calcium 9.9 mg/dL (8.4-10.2); Carbon Dioxide 28 mmol/L (22-30); Chloride 104 mmol/L (98-107); Estimated CRCL calculation 89 ml/min; Estimated Glomerular Filt Rate > 60; Glucose 110 mg/dL (65-110); Potassium 3.7 mmol/L (3.4-5.0); Sodium 141 mmol/L (137-145); Total Protein 8.1 g/dL (6.3-8.2)
[2025-03-02 21:45] VITALS: BP 133/85; PULSE 61; RESP 18; TEMP 36.7; O2SAT 95
[2025-03-02] MEDS: CEPHALEXIN 500 MG CAPSULE PO (21:46)
[2025-03-02] MEDS: ACETAMINOPHEN 325 MG TABLET 650 MG PO (21:46)
== END 2025-03-02 21:53 | disposition home or self-care (01) ==
PROVIDERS: Physician Assistant; Emergency Provider Emergency Medicine; PCP Internal Medicine
DX: R22.41 Localized swelling, mass and lump, right lower limb (principal); I10 Essential (primary) hypertension; K21.9 Gastro-esophageal reflux disease without esophagitis; G62.9 Polyneuropathy, unspecified; Z86.711 Personal history of pulmonary embolism; Z86.718 Personal history of other venous thrombosis and embolism; Z98.61 Coronary angioplasty status; M17.11 Unilateral primary osteoarthritis, right knee; Z79.01 Long term (current) use of anticoagulants; Z79.899 Other long term (current) drug therapy
CPT/HCPCS: 36415; 73564; 80053; 85025; 85610; 85652; 85730; 86140; 93971; 99284; A9270